=== PATIENT | male | born 1950 | race Caucasian/White ===

== ENCOUNTER → 2020-10-09 09:30 | Outpatient (BNVA) | payer MEDICARE, SELFPAY | PROVIDERS: Family Provider Family Medicine; PCP Family Medicine; Referring Provider Family Medicine; Visit Provider Anesthesiology Pain Medicine | DX: M51.16 Intervertebral disc disorders with radiculopathy, lumbar region (principal); M47.816 Spondylosis without myelopathy or radiculopathy, lumbar region; M54.9 Dorsalgia, unspecified; M96.1 Postlaminectomy syndrome, not elsewhere classified; Z98.890 Other specified postprocedural states; Z79.899 Other long term (current) drug therapy; Z79.891 Long term (current) use of opiate analgesic | CPT/HCPCS: 99205 ==

== ENCOUNTER 2020-12-01 12:04 | Outpatient (CLI) | payer MEDICARE, SELFPAY ==
--- NOTE | 2020-12-01 12:15 | MR_ITS ---
WS: [id number] MRI LUMBAR SPINE WITH AND WITHOUT CONTRAST. HISTORY: M96.1 - Postlaminectomy syndrome, not elsewhere classified COMPARISON: 03/27/2018 TECHNIQUE: Sagittal and axial multisequence imaging is submitted. Sagittal and axial T1 fat sat seque nces post-MultiHance 18 cc IV. Posterior lumbar fusion extends from L4 to S1. Interbody spacers at L4-5 and L5-S1. No acute marrow e denise. The posterior lumbar vertebral are normally aligned. Mild disc space narrowing at L1-2. Conus terminates normally at L1. L1-L2: Previously described LEFT paracentral disc protrusion has nearly completely resolved. No conta ct on the nerve root. L2-L3: Mild facet joint arthritis. No stenosis. L3-L4: Mild to moderate bilateral facet joint arthritis. Ligamentum flavum hypertrophy encroaching in to the central thecal sac. No significant stenosis or disc protrusions. L4-L5: Bilateral facet joint arthritis. Mild encroachment into the thecal sac. Very similar to the pr ior examination. Mild bilateral foraminal narrowing due to combination of facet disease and disc dise ase. Slightly greater narrowing of the RIGHT subarticular recess may be bony encroachment but this is unchanged. L5-S1: No central stenosis. Difficult evaluation of the foramina due to artifact from the hardware. N o central stenosis. Postcontrast images are negative for discitis or osteomyelitis. MR/MR lumbar spine wo/w con [id number] IMPRESSION: 1. Status post posterior lumbar fusion from L4 to S1 with interbody spacers at L4-5 and L5-S1. Stable with no complication since the prior study. 2. No recurrent or new disc herniations. 3. Nearly completely resolved LEFT paracentral disc protrusion at L1-2. 4. Mild bilateral foraminal narrowing and RIGHT subarticular recess stenosis a t L4-5.
[2020-12-01] MEDS: gadobenate dimeglumine 20 mL vial IV (13:37)
== END 2020-12-01 12:05 | disposition home or self-care (01) ==
LOC: RADSHAW 12:08
PROVIDERS: PCP Family Medicine; Visit Provider Anesthesiology Pain Medicine
DX: M96.1 Postlaminectomy syndrome, not elsewhere classified (principal); M79.604 Pain in right leg; M43.27 Fusion of spine, lumbosacral region; M51.26 Other intervertebral disc displacement, lumbar region
CPT/HCPCS: 72158; A9577

== ENCOUNTER → 2020-12-25 09:29 | Outpatient (BNVA) | payer MEDICARE, SELFPAY | PROVIDERS: PCP Family Medicine; Visit Provider Anesthesiology Pain Medicine | DX: M51.16 Intervertebral disc disorders with radiculopathy, lumbar region (principal); M47.816 Spondylosis without myelopathy or radiculopathy, lumbar region; M96.1 Postlaminectomy syndrome, not elsewhere classified; M48.061 Spinal stenosis, lumbar region without neurogenic claudication; M79.604 Pain in right leg; Z79.891 Long term (current) use of opiate analgesic | CPT/HCPCS: 99214 ==

== ENCOUNTER → 2021-03-02 11:03 | Outpatient (BNVA) | payer MEDICARE, SELFPAY | PROVIDERS: PCP Family Medicine; Referring Provider Anesthesiology Pain Medicine; Visit Provider Orthopaedic Surgery | DX: M54.50 Low back pain, unspecified (principal); Z98.1 Arthrodesis status | CPT/HCPCS: 72110 ==

== ENCOUNTER → 2021-04-26 09:23 | Outpatient (BNVA) | payer MEDICARE, SELFPAY | PROVIDERS: PCP Family Medicine; Visit Provider Anesthesiology Pain Medicine | DX: M47.816 Spondylosis without myelopathy or radiculopathy, lumbar region (principal); M96.1 Postlaminectomy syndrome, not elsewhere classified; M51.16 Intervertebral disc disorders with radiculopathy, lumbar region; M79.604 Pain in right leg; M79.605 Pain in left leg; Z79.891 Long term (current) use of opiate analgesic | CPT/HCPCS: 99214 ==

== ENCOUNTER 2021-08-05 12:52 | Outpatient (CLI) | payer MEDICARE, SELFPAY ==
--- NOTE | 2021-08-05 13:08 | CT_ITS ---
WS: [id number] CTA HEAD AND NECK TECHNIQUE: Contrast enhanced CTA of the head and neck with coronal and sagittal reformatted images an d maximum intensity projection (MIP) images. NASCET criteria utilized. CLINICAL INFORMATION: ACUTE CVA COMPARISON: None. DLP: 3378.[address] scans at [facility] use at least one of these dose optimization techniques: automated e xposure control; mA and/or kV adjustment per patient size (includes targeted exams where dose is matc hed to clinical indication); or iterative reconstruction. FINDINGS: No evidence of intracranial hemorrhage or mass effect on the noncontrast head. Mild small v essel changes moderate parenchymal volume loss. No extra axial fluid collections. No evidence of mass or mass effect. Normal posterior fossa. Fluid and mucosal thickening in the ethmoid air cells and RI GHT frontal sinus. Secretions within the LEFT sphenoid sinus consistent with sinusitis. Mastoid air c ells well aerated. RIGHT: RIGHT common carotid artery is patent. Moderate calcified atheromatous plaque RIGHT carotid bu lb extending into the ICA. Less than 50% RIGHT ICA stenosis. RIGHT ICA is patent to the skull base. LEFT: LEFT common carotid artery is patent. Mild calcified atheromatous plaque LEFT carotid bulb exte nding into the ICA. No significant LEFT ICA stenosis. LEFT ICA is patent to the skull base. INTRACRANIAL CTA: Both vertebral arteries are patent. Mild segmental stenosis involving the basilar artery. Basilar art hodan is patent. Persistent LEFT MACHINE BOSS. Normal vascularity to the MACHINE BOSS territory bilaterally. Both ICAs are patent at the skull base. Mild cavernous carotid calcification. Normal vascularity to t he ARMANDO and MCA territories bilaterally. No evidence of flow-limiting stenosis or aneurysm. Lung apices are well aerated. Normal posterior nasopharynx. Normal parapharyngeal fat. No cervical ly mphadenopathy. Mild spondylitic changes cervical spine. Disc space narrowing worse at C5-C7. Normal v isualized dural venous sinuses. CT/CT angio headneck* [id number] IMPRESSION: 1. Moderate atheromatous plaque both carotid bulbs extending into the ICA RIGH T greater than LEFT. Less than 50% ICA stenosis bilaterally. 2. Both vertebral arteries are patent. Mild segmental stenosis in the basilar artery which remains patent. 3. Mild cavernous carotid calcification. No flow-limiting intracranial stenosi s. 4. Persistent LEFT MACHINE BOSS. 5. No evidence of intracranial hemorrhage or mass effect on the noncontrast im aging. 6. Mild small vessel changes with mild parenchymal volume loss. 7. Inflammatory changes in the paranasal sinuses.
[2021-08-05] MEDS: iodixanol 320 mg/mL 100mL Btl IV (13:39)
== END 2021-08-05 12:53 | disposition home or self-care (01) ==
LOC: RAD 12:56
PROVIDERS: PCP Family Medicine; Visit Provider Family Medicine
DX: I63.9 Cerebral infarction, unspecified (principal); I65.23 Occlusion and stenosis of bilateral carotid arteries
CPT/HCPCS: 70496; 70498

== ENCOUNTER 2021-08-05 14:59 | Observation (INO) | payer MEDICARE, SELFPAY ==
[2021-08-05 15:07] VITALS: BP 150/88; PULSE 87; RESP 18; TEMP 36.5; O2SAT 96; BMI 28.1
--- NOTE | 2021-08-05 15:37 | ED_ITS ---
HPI - Weakness General: Chief complaint: Weakness Stated complaint: stroke like symptoms Time Seen by Provider: 08/05/21 15:27 Source: patient Mode of arrival: ambulatory Limitations: no limitations History of Present Illness: 70-year-old male presents emergency room with complaint of right arm weakness that began 2 days ago. Intermittent right arm weakness was seen by Dr. Yang this morning. He had a CTA done which did not show any hemorrhagic areas. As well as no acute ischemic areas no significant stenosis. After seeing Trey today he states he began having more right arm weakness difficulty with gripping things that is already begun to improve by the time he arrives here is not had any chest pain. He had previously been taking a full dose aspirin daily Dr. Ynag had stopped and advised him to take Plavix but is not at the opportunity to begin yet. There are no statins listed. MD Complaint: focal weakness Onset (ago): day(s) (2) Duration: intermittent Location: LUE Quality: tingling and numbness Relieving factors: none Exacerbating factors: none Associated symptoms: Denies chest pain, chills, confusion, melena, decreased appetite, diaphoresis, dysuria, easy bruising, fever(s), headache(s), myalgias, nausea, rash, short of breath, syncope or vomiting Review of Systems Const: Denies: fever(s), chills or diaphoresis Card: Denies: chest pain or syncope GI: Denies: nausea, vomiting or melena : Denies: dysuria Neuro: Denies: headache(s) or confusion Jimenez/Lymph: Denies: easy bruising PFS ED PFSH: Medical History Yancey esophagus COPD (chronic obstructive pulmonary disease) Facet arthropathy, 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 Other CAD (coronary artery disease) Clotting disorder Social History Alcohol intake: current Alcohol intake frequency: holidays/special occasions only History of recent travel: No Physical Exam Const: GENERAL APPEARANCE: cooperative and comfortable ORIENTATION/CONSCIOUSNESS: Yes awake, Yes oriented to person, Yes oriented to place and Yes oriented to time HENMT: COMMON NORMALS: normocephalic, atraumatic, hearing grossly normal bila terally, external ears normal, EAC's normal, TM's normal bilaterally, Normal nasal mucous membranes and turbinates present, moist oral mucous membranes and oropharynx normal HEAD & SCALP: normocephalic and atraumatic NOSE: Normal nasal mucous membranes and turbinates present EXTERNAL EAR: Yes external ears normal EXTERNAL AUDITORY CANAL: EAC's normal TYMPANIC MEMBRANE: TM's normal bilaterally Eye: COMMON NORMALS: Equal, round and reactive pupils present, EOMs intact bilaterally, conjunctivae normal and no scleral icterus CONJUNCTIVA: Yes conjunctivae normal PUPIL: Yes Equal, round and reactive pupils present Neck/C-Spine: COMMON NORMALS: full ROM, no lymphadenopathy, supple and no JVD Resp: COMMON NORMALS: normal respiratory effort, No retractions, No use of accessory muscles and clear to auscultation bilaterally AUSCULTATION: clear to auscultation bilaterally Cardio: COMMON NORMALS: no JVD, regular rate, regular rhythm and No murmurs present (Cardio) RATE: regular rate RHYTHM: regular rhythm GI: COMMON NORMALS: Soft to palpation and No hepatosplenomegaly present AUSCULTATION: Yes normoactive bowel sounds PALPATION: Yes Soft to palpation, No Tenderness to palpation present (GI), No Guarding due to palpation present (GI) and Yes No hepatosplenomegaly present Extremity: COMMON NORMALS: normal to inspection, capillary refill normal, no clubbing, cyanosis or edema, no calf tenderness and no pedal edema Neuro: SENSORIUM/ORIENTATION: Yes oriented to person, Yes oriented to place and Yes oriented to time Skin: COMMON NORMALS: no rashes or lesions noted GENERAL SKIN EXAM: no rashes or lesions noted Course Vital Signs: Vital signs: Vital Signs Temperature 97.6 F 08/06/21 14:05 Pulse Rate 79 08/06/21 14:05 Respiratory Rate 20 H 08/06/21 14:05 Blood Pressure 117/70 08/06/21 14:05 Pulse Oximetry 96 08/06/21 14:05 MDM - Weakness Medical Decision Making Due to the patient's primary care doctor as well as with Dr. Garcia and the hospitalist. Question of possible CVA Dr. Garcia is recommending that we phlebotomize the patient 1 unit get an MRI. Discussed with the hospitalist orders written also discussed with the patient. At this time he is doing well has no specific complaints other than just a very mild word finding difficulty and right arm weakness which seems to have improved slightly. Medical Records I reviewed the patient's medical records. Lab Data I reviewed the patient's lab results. : 08/06/21 03:07 08/06/21 03:07 Radiology Impressions Cervical Spine CT 08/05/21 17:39 IMPRESSION: Moderate endplate degenerative changes/uncovertebral hypertrophy at C5-C6 and C6-C7. This leads to mild to moderate bilateral neural foraminal narrowing at these levels. No severe spinal canal stenosis. Thoracic Spine CT 08/05/21 17:39 IMPRESSION: No acute findings. No significant disc protrusion, spinal canal stenosis, or neural foraminal stenosis in the thoracic spine. Head MRI 08/06/21 08:00 IMPRESSION: 1. Multiple punctate tiny foci of acute ischemia involving the LEFT frontal, parietal, occipital, and posterior temporal lobes most likely embolic in etiology. No right-sided infarcts. 2. No mass effect or midline shift. 3. Mild small vessel changes with moderate parenchymal volume loss. 4. Mild inflammatory changes in the paranasal sinuses. Mastoid air cells well aerated. 5. No hemosiderin on susceptibly weighted images. Notified Stas Durham MD at 08/06/2021 12:23 PM. Laboratory Results WBC 6.8 10^3/uL (4.0-10.0) 08/05/21 13:50 RBC 5.46 10^6/uL (4.1-5.3) H 08/05/21 13:50 Hgb 17.8 g/dL (11.7-16.6) H 08/05/21 13:50 Hct 51.1 % (42.0-52.0) 08/05/21 13:50 MCV 93.6 fl (80-94) 08/05/21 13:50 MCH 32.6 pg (28.0-34.0) 08/05/21 13:50 MCHC 34.8 g/dL (30.0-36.0) 08/05/21 13:50 RDW 12.5 % (12.1-15.1) 08/05/21 13:50 Plt Count 155 10^3/cmm (130-400) 08/05/21 13:50 MPV 11.2 fL (7.4-10.4) H 08/05/21 13:50 Neut % (Auto) 65.9 % 08/05/21 13:50 Lymph % (Auto) 23.6 % 08/05/21 13:50 [place] % (Auto) 4.4 % 08/05/21 13:50 Eos % (Auto) 4.8 % 08/05/21 13:50 Baso % (Auto) 1.0 % 08/05/21 13:50 Neut # (Auto) 4.50 10^3/uL (1.8-7.7) 08/05/21 13:50 Lymph # (Auto) 1.6 10^3/uL (0.8-4.8) 08/05/21 13:50 [place] # (Auto) 0.3 10^3/uL (0.2-0.9) 08/05/21 13:50 Eos # (Auto) 0.3 10^3/uL (0.0-0.8) 08/05/21 13:50 Baso # (Auto) 0.1 10^3/uL (0.0-0.1) 08/05/21 13:50 Nucleated RBC % (auto) 0 % 08/05/21 13:50 Nucleated RBCs # 0.0 /100WBC 08/05/21 13:50 ESR 19 mm/hr (0-10) H 08/05/21 13:50 PT 13.50 SECONDS (12.1-14.9) 08/05/21 13:50 INR 1.00 (0.8-1.2) 08/05/21 13:50 APTT 32.6 SECONDS (23.9-36.7) 08/05/21 13:50 Sodium 140 mmol/L (136-145) 08/05/21 16:50 Potassium 3.2 mmol/L (3.5-5.1) L 08/05/21 16:50 Chloride 108 mmol/L (98-107) H 08/05/21 16:50 Carbon Dioxide 19 mmol/L (22-29) L 08/05/21 16:50 Anion Gap 16.2 (5-19) 08/05/21 16:50 BUN 18 mg/dL (8-23) 08/05/21 16:50 Creatinine 1.1 mg/dL (0.7-1.2) 08/05/21 16:50 GFR Calculation 66.4 mL/min (90-130) L 08/05/21 16:50 Glucose 94 mg/dL (65-115) 08/05/21 16:50 Calculated Osmolality 292 mOsm/kg (285-295) 08/05/21 16:50 Calcium 8.3 mg/dL (8.5-10.5) L 08/05/21 16:50 Iron 92 ug/dL (59-158) 08/05/21 16:50 TIBC 260 mcg/dl 08/05/21 16:50 % Saturation 35.3 % (20-50) 08/05/21 16:50 Unsat Iron Binding 168 ug/dL (112-347) 08/05/21 16:50 Total Bilirubin 0.5 mg/dL (0.15-1.2) 08/05/21 16:50 AST 26 U/L (0-40) 08/05/21 16:50 ALT 25 U/L (0-41) 08/05/21 16:50 Alkaline Phosphatase 79 IU/L (40-130) 08/05/21 16:50 C-Reactive Protein 3.0 mg/L (0.0-4.9) 08/05/21 16:50 Total Protein 7.0 g/dL (6.6-8.7) 08/05/21 16:50 Albumin 3.7 g/dL (3.5-5.2) 08/05/21 16:50 Globulin 3.3 g/dL (1.3-4.6) 08/05/21 16:50 TSH 2.85 uIU/mL (0.27-4.20) 08/05/21 16:50 Urine Color Yellow (Yellow) 08/05/21 16:10 Urine Appearance Clear (CLEAR) 08/05/21 16:10 Urine pH 5 (5-7) 08/05/21 16:10 Ur Specific [place] 1.010 (1.005-1.030) 08/05/21 16:10 Urine Protein Neg (Negative) 08/05/21 16:10 Urine Glucose (UA) Norm (Normal) 08/05/21 16:10 Urine Ketones Negative (Negative) 08/05/21 16:10 Urine Blood Neg (Negative) 08/05/21 16:10 Urine Nitrate Negative (Negative) 08/05/21 16:10 Urine Bilirubin Neg (Negative) 08/05/21 16:10 Urine Urobilinogen Norm mg/dL (Negative) 08/05/21 16:10 Ur Leukocyte Esterase Negative (Negative) 08/05/21 16:10 Urine Opiates Screen Positive ng/mL (Negative) H 08/05/21 16:10 Ur Barbiturates Screen Negative ng/mL (Negative) 08/05/21 16:10 Ur Phencyclidine Scrn Negative ng/mL (Negative) 08/05/21 16:10 Ur Amphetamines Screen Negative ng/mL (Negative) 08/05/21 16:10 U Benzodiazepines Scrn Negative ng/mL (Negative) 08/05/21 16:10 Urine Cocaine Screen Negative ng/mL (Negative) 08/05/21 16:10 U Marijuana (THC) Screen Positive ng/mL (Negative) H 08/05/21 16:10 Discharge Plan Discharge Patient Disposition: Admitted As Inpatient Admit Provider: Stas Durham Condition: Stable Discharge Diet: Regular and Cardiac Discharge Activity: Resume usual activity and Increase activity as tolerated Coding Level of Care Code ED Therapy Director for Jm Fwlauren Exam Comprehensive NIH stroke score NIHSS Level Of Consciousness - 1a: 0 Level Of Consciousness Questions - 1b: Both Correct Level Of Consciousness Commands - 1c: Both Correct Best Gaze - 2: Normal Visual Colilns - 3: No Visual Loss Facial Palsy - 4: Normal Motor Arm Right - 5: Drift Motor Arm Left - 5: No Drift Motor Leg Right - 6: No Drift Motor Leg Left - 6: No Drift Limb Ataxia - 7: Absent Sensory - 8: Mild To Moderate Loss Best Language - 9: No Aphasia Dysarthia - 10: Normal Extinction And Inattention - 11: 0 Score Total Score: 2
--- NOTE | 2021-08-05 15:46 | ECG_ITS ---
[facility] Test Date: 2021-08-05 Pat Name: Bridger Owens Department: Room: Gender: Male Nurse Charge Rn: : 1950 Requested By: Jeet Maloney Order Number: [id number] Jonathan MD: Katerin Davis M.D. Measurements Intervals [place] Rate: 86 P: 67 WI: 150 QRS: 16 QRSD: 76 T: 63 QT: 355 QTc: 425 Interpretive Statements SINUS RHYTHM POSSIBLE LEFT ATRIAL ENLARGEMENT [-0.1mV P-WAVE IN V1/V2] MODERATE ST DEPRESSION [0.05+ mV ST DEPRESSION] No previous ECG available for comparison Electronically Signed On 08-06-2021 5:53:52 [employer] by Katerin Davis M.D. [email or web address]
[2021-08-05 16:04] LABS: Basophils # 0.1 10^3/uL (0.0-0.1); Eosinophils # 0.3 10^3/uL (0.0-0.8); Eosinophils % 4.8 %; Hematocrit 51.1 % (42.0-52.0); Hemoglobin 17.8 g/dL (11.7-16.6); Lymphocytes # 1.6 10^3/uL (0.8-4.8); Lymphocytes % 23.6 %; Mean Corpuscular HGB Conc 34.8 g/dL (30.0-36.0); Mean Corpuscular Hemoglobin 32.6 pg (28.0-34.0); Mean Corpuscular Volume 93.6 fl (80-94); Mean Platelet Volume 11.2 fL (7.4-10.4); Monocytes # 0.3 10^3/uL (0.2-0.9); Monocytes % 4.4 %; Neutrophils % 65.9 %; Nucleated Red Blood Cells % 0 %; Platelet Count 155 10^3/cmm (130-400); Red Blood Count 5.46 10^6/uL (4.1-5.3); Red Cell Distribution Width 12.5 % (12.1-15.1); White Blood Count 6.8 10^3/uL (4.0-10.0)
[2021-08-05 16:14] LABS: Add Urine Microscopic? NO; Charge for UA Resulting for Rev
[2021-08-05 16:20] LABS: Urine Appearance Clear (CLEAR); Urine Color Yellow (Yellow); pH Urine 5 (5-7)
[2021-08-05 16:21] LABS: Bilirubin Urine Neg (Negative); Blood Urine Neg (Negative); Glucose Urine UA Norm (Normal); Ketones Urine Negative (Negative); Leukocyte Esterase Urine Negative (Negative); Nitrate Urine Negative (Negative); Protein Urine Neg (Negative); Urobilinogen Urine Norm (Negative)
[2021-08-05 16:24] LABS: Partial Thromboplastin Time 32.6 SECONDS (23.9-36.7)
[2021-08-05 16:30] LABS: Amphetamines Screen Urine Negative (Negative); Barbiturates Screen Urine Negative (Negative); Benzodiazepines Screen Urine Negative (Negative); Cocaine Screen Urine Negative (Negative); Opiate Screen Urine Positive (Negative); PCP Screen Urine Negative (Negative); THC Screen Urine Positive (Negative)
[2021-08-05] MEDS: sodium chloride 0.9% 1,000 ML 999 ML IV (17:10)
--- NOTE | 2021-08-05 17:11 | P.HP_ITS ---
Providers/Chief Complaint Primary Care Provider: Waqas Yang MD Chief Complaint: stroke like symptoms History of Present Illness Bridger Owens is a 70 year old male with past medical history of hypertension, polycythemia, lumbar disorder who was sent in from his primary care's office today because of having on and off episodes of right weakness for last 2 days along with few episodes of finding it difficult to find his words. Feel the episodes work associated with headache, dizziness and tingling in his right hand. Patient went to his primary care office with similar complaints and was asked to do a CTA of his head and neck which came back normal. Because patient continued to have a similar symptoms so he was sent to the ER. Patient is not having similar complaints at the present but states he is finding little bit difficult to find words. As per conversation with the ER physician he had discussed the case with hematology and they recommended hydration and phlebotomizing 1 unit of PRBC. Review of Systems General: Reports: 10 or more systems reviewed and unremarkable except in HPI and below Const: Denies: fever(s), chills, body aches, change in appetite, change in weight, malaise, night sweats, diaphoresis, change in sleep pattern, daytime sleepiness or snoring Eyes: Denies: change in vision, blurry vision, photophobia, eye discomfort or eye discharge ENMT: Denies: throat pain, enlarged tonsils, hoarseness, mouth pain, oral sores, dry mouth, tinnitus, nasal congestion or post nasal drip Card: Denies: chest pain, palpitations, irregular heart rhythm, edema, swelling of feet/ankles, lightheadedness, syncope, pre-syncope, dyspnea on exertion, orthopnea, leg pain with exertion or acrocyanosis Resp: Denies: dyspnea, productive cough, non-productive cough, wheezing, stridor, pain on inspiration, change in phlegm color, hemoptysis or chest congestion GI: Denies: abdominal pain, nausea, vomiting, hematemesis, coffee ground emesis, dysphagia, heartburn, diarrhea, constipation, bloating, GI cramping, change in bowel habits, pain on defecation, hematochezia or melena : Denies: flank pain, difficulty urinating, dysuria, urinary frequency, urinary urgency, urinary hesitancy, urinary dribbling, difficulty starting urination, change in urine stream, nocturia or hematuria Musc: Denies: neck pain, back pain, extremity pain, joint pain, joint swelling, joint redness, joint stiffness or limited range of motion Neuro: Denies: headache(s), numbness in extremities, weakness in extremities, sensory changes, lack of coordination, difficulty walking, frequent falls, dizziness, vertigo, confusion, Slurred speech present, difficulty communicating thoughts or seizure-like activity Psych: Denies: anxiety, depression, mood swings, panic attacks, hopelessness or irritability Endo: Denies: polyuria, polydipsia, tired all the time, cold intolerance, excessive sweating, flushing or heat intolerance Jimenez/Lymph: Denies: easy bruising or easy bleeding All/Imm: Denies: tongue swelling, facial swelling or acute wheezing Medications/Allergies Home Medications Medication Instructions Recorded Confirmed Last Taken Type losartan 50 mg-hydrochlorothiazide 1 tab PO DAILY 10/09/20 08/05/21 08/05/21 History 12.5 mg tablet melatonin 10 mg capsule 10 mg PO DAILY 10/09/20 08/05/21 08/04/21 History hydrocodone 7.5 mg-acetaminophen 1 tab PO BID PRN 15 Days #30 tab 04/26/21 08/05/21 Unknown Rx 325 mg tablet aspirin 325 mg capsule 325 mg PO BEDTIME 08/05/21 08/05/21 08/04/21 History clopidogrel 75 mg tablet 75 mg PO DAILY 08/05/21 08/05/21 Unknown History pantoprazole 40 mg tablet,delayed 40 mg PO DAILY 08/05/21 08/05/21 Unknown History release rosuvastatin 40 mg tablet 40 mg PO DAILY 08/05/21 08/05/21 Unknown History Allergies Allergy/AdvReac Type Severity Reaction Status Date / Time No Known Allergies Allergy Verified 08/05/21 16:04 PFSH Acute PFSH: Medical History (Updated 08/05/21 @ 17:12 by Stas Durham MD) Yancey esophagus COPD (chronic obstructive pulmonary disease) Facet arthropathy, 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 Other CAD (coronary artery disease) Clotting disorder Social History Alcohol intake: current Alcohol intake frequency: holidays/special occasions only History of recent travel: No Vitals/I&O/Wt Last Vital Signs Temp 97.7 F 08/05/21 15:07 Pulse 87 08/05/21 15:07 Resp 18 08/05/21 15:07 BP 150/88 08/05/21 15:07 Pulse Ox 96 08/05/21 15:07 Weight last 48 hrs Weight 83.915 kg Physical Exam Narrative: General: No acute distress, AO x3, no slurred speech HEENT: PERRLA, pupils bilaterally equal and reactive Chest: Normal vesicular breath sounds, no added sounds, equal good air entry bilaterally CVS: S1-S2 regular, no murmurs, no tachycardia, no gallops, no rubs Abdomen: Soft, nontender, no organomegaly, bowel sounds present Neuro: No focal deficits, no facial deformity, AO x3, power 5/5 in both lower limb, 4/5 in right upper limb Data : 08/05/21 13:50 08/05/21 16:50 Other Labs: Laboratory Results WBC 6.8 10^3/uL (4.0-10.0) 08/05/21 13:50 RBC 5.46 10^6/uL (4.1-5.3) H 08/05/21 13:50 Hgb 17.8 g/dL (11.7-16.6) H 08/05/21 13:50 Hct 51.1 % (42.0-52.0) 08/05/21 13:50 MCV 93.6 fl (80-94) 08/05/21 13:50 MCH 32.6 pg (28.0-34.0) 08/05/21 13:50 MCHC 34.8 g/dL (30.0-36.0) 08/05/21 13:50 RDW 12.5 % (12.1-15.1) 08/05/21 13:50 Plt Count 155 10^3/cmm (130-400) 08/05/21 13:50 MPV 11.2 fL (7.4-10.4) H 08/05/21 13:50 Neut % (Auto) 65.9 % 08/05/21 13:50 Lymph % (Auto) 23.6 % 08/05/21 13:50 [place] % (Auto) 4.4 % 08/05/21 13:50 Eos % (Auto) 4.8 % 08/05/21 13:50 Baso % (Auto) 1.0 % 08/05/21 13:50 Neut # (Auto) 4.50 10^3/uL (1.8-7.7) 08/05/21 13:50 Lymph # (Auto) 1.6 10^3/uL (0.8-4.8) 08/05/21 13:50 [place] # (Auto) 0.3 10^3/uL (0.2-0.9) 08/05/21 13:50 Eos # (Auto) 0.3 10^3/uL (0.0-0.8) 08/05/21 13:50 Baso # (Auto) 0.1 10^3/uL (0.0-0.1) 08/05/21 13:50 Nucleated RBC % (auto) 0 % 08/05/21 13:50 Nucleated RBCs # 0.0 /100WBC 08/05/21 13:50 PT 13.50 SECONDS (12.1-14.9) 08/05/21 13:50 INR 1.00 (0.8-1.2) 08/05/21 13:50 APTT 32.6 SECONDS (23.9-36.7) 08/05/21 13:50 Sodium Cancelled 08/05/21 13:50 Potassium Cancelled 08/05/21 13:50 Chloride Cancelled 08/05/21 13:50 Carbon Dioxide Cancelled 08/05/21 13:50 Anion Gap Cancelled 08/05/21 13:50 BUN Cancelled 08/05/21 13:50 Creatinine Cancelled 08/05/21 13:50 GFR Calculation Cancelled 08/05/21 13:50 Glucose Cancelled 08/05/21 13:50 Calculated Osmolality Cancelled 08/05/21 13:50 Calcium Cancelled 08/05/21 13:50 Total Bilirubin Cancelled 08/05/21 13:50 AST Cancelled 08/05/21 13:50 ALT Cancelled 08/05/21 13:50 Alkaline Phosphatase Cancelled 08/05/21 13:50 Total Protein Cancelled 08/05/21 13:50 Albumin Cancelled 08/05/21 13:50 Globulin Cancelled 08/05/21 13:50 Urine Color Yellow (Yellow) 08/05/21 16:10 Urine Appearance Clear (CLEAR) 08/05/21 16:10 Urine pH 5 (5-7) 08/05/21 16:10 Ur Specific [place] 1.010 (1.005-1.030) 08/05/21 16:10 Urine Protein Neg (Negative) 08/05/21 16:10 Urine Glucose (UA) Norm (Normal) 08/05/21 16:10 Urine Ketones Negative (Negative) 08/05/21 16:10 Urine Blood Neg (Negative) 08/05/21 16:10 Urine Nitrate Negative (Negative) 08/05/21 16:10 Urine Bilirubin Neg (Negative) 08/05/21 16:10 Urine Urobilinogen Norm mg/dL (Negative) 08/05/21 16:10 Ur Leukocyte Esterase Negative (Negative) 08/05/21 16:10 Urine Opiates Screen Positive ng/mL (Negative) H 08/05/21 16:10 Ur Barbiturates Screen Negative ng/mL (Negative) 08/05/21 16:10 Ur Phencyclidine Scrn Negative ng/mL (Negative) 08/05/21 16:10 Ur Amphetamines Screen Negative ng/mL (Negative) 08/05/21 16:10 U Benzodiazepines Scrn Negative ng/mL (Negative) 08/05/21 16:10 Urine Cocaine Screen Negative ng/mL (Negative) 08/05/21 16:10 U Marijuana (THC) Screen Positive ng/mL (Negative) H 08/05/21 16:10 CTA head and neck: CT/CT angio headneck* [id number] IMPRESSION: ? 1.? Moderate atheromatous plaque both carotid bulbs extending into the ICA RIGHT greater than LEFT. Less than 50% ICA stenosis bilaterally. 2.? Both vertebral arteries are patent. Mild segmental stenosis in the basilar artery which remains patent. 3.? Mild cavernous carotid calcification. No flow-limiting intracranial stenosis. 4.? Persistent LEFT TECHNICAL SOLUTION ARCHITECT. 5.? No evidence of intracranial hemorrhage or mass effect on the noncontrast imaging. 6.? Mild small vessel changes with mild parenchymal volume loss. 7.? Inflammatory changes in the paranasal sinuses. Dictated By: Aldo Burch MD A&P Assessment and plan (1) TIA (transient ischemic attack): Status: Acute (2) Polycythemia: Status: Acute (3) HTN (hypertension): Status: Acute Plan 70-year-old gentleman past medical history of polycythemia with significant family history of CVA, CAD presented with symptoms consistent with TIA. TIA: Under work-up. CTA head and neck done as an outpatient. Telemetry, check echocardiogram, MRI brain. PT/OT/speech evaluation. Continue with home dose of aspirin, Plavix. Atorvastatin 80 mg daily. Check A1c, lipid panel. Check drug screen, TSH, CRP, ESR, INR Permissible hypertension. Patient does have history of lumbar arthropathy. Will do CT cervical and thoracic spine to rule out osteophytes. Polycythemia: Symptoms could be secondary to polycythemia. Case discussed with hematology office. Normal saline 100 cc/h. Hold off on diuretic for now. Advised to phlebotomize 1 unit of PRBC. Hypertension: Permissive hypertension. For now hold off on any antihypertensives. Full code. Protonix OPD prophylaxis. Lovenox for DVT prophylaxis. Admitted under observation. Attestations Medical Necessity Statement*: Admit under obs for less than 2 MN for TIA work up, polycythemia Time Spent in Patient Care: Greater than 35 minutes Coding Level of Care Code [place] Agent for [facility] Fwd Diagnoses TIA (transient ischemic attack) G45.9 Polycythemia D75.1 HTN (hypertension) I10
[2021-08-05 17:36] LABS: Alanine Aminotransferase 25 U/L (0-41); Albumin Level 3.7 g/dL (3.5-5.2); Alkaline Phosphatase 79 IU/L (40-130); Anion Gap 16.2 (5-19); Aspartate Amino Transferase 26 U/L (0-40); Blood Urea Nitrogen 18 mg/dL (8-23); Calcium 8.3 mg/dL (8.5-10.5); Carbon Dioxide 19 mmol/L (22-29); Chloride 108 mmol/L (98-107); Creatinine Clr Calc Pharmacy 66.8816; Globulin 3.3 g/dL (1.3-4.6); Glomerular Filtration Rate 66.4 mL/min (90-130); Glucose 94 mg/dL (65-115); Osmolality Calculated 292 mOsm/kg (285-295); Potassium 3.2 mmol/L (3.5-5.1); Sodium 140 mmol/L (136-145); Total Bilirubin 0.5 mg/dL (0.15-1.2)
--- NOTE | 2021-08-05 17:39 | CTR_ITS ---
PROCEDURE INFORMATION: Exam: CT Cervical Spine Without Contrast Exam date and time: 08/05/2021 5:39 PM Age: 70 years old Clinical indication: Patient HX: Numbness of R upper extremity; Additional info: Numbness of right limb TECHNIQUE: Imaging protocol: Computed tomography images of the cervical spine without contrast. Radiation optimization: All CT scans at this facility use at least one of these dose optimization techniques: automated exposure control; mA and/or kV adjustment per patient size (includes targeted exams where dose is matched to clinical indication); or iterative reconstruction. COMPARISON: CT angio headneck* [id number] 08/05/2021 1:30 PM RADIATION DOSE METRICS: Total DLP (mGy-cm): 708.72 FINDINGS: Bones/joints: No acute fracture. Normal alignment. Moderate endplate degenerative changes/uncovertebral hypertrophy at C5-C6 and C6-C7. Discs/Spinal canal/Neural foramina: No significant disc protrusion. No severe spinal canal stenosis. Mild to moderate bony spurring and neural foraminal narrowing bilaterally at the C5-C6 and C6-C7 levels. Lungs: Lung apices are normal. Soft tissues: Unremarkable. CT/CT cervical spin wo con* [id number] IMPRESSION: Moderate endplate degenerative changes/uncovertebral hypertrophy at C5-C6 and C6-C7. This leads to mild to moderate bilateral neural foraminal narrowing at these levels. No severe spinal canal stenosis.
--- NOTE | 2021-08-05 17:39 | CTR_ITS ---
PROCEDURE INFORMATION: Exam: CT Thoracic Spine Without Contrast Exam date and time: 08/05/2021 5:39 PM Age: 70 years old Clinical indication: Numbness; Patient HX: Arthropathy TECHNIQUE: Imaging protocol: Computed tomography images of the thoracic spine without contrast. Radiation optimization: All CT scans at this facility use at least one of these dose optimization techniques: automated exposure control; mA and/or kV adjustment per patient size (includes targeted exams where dose is matched to clinical indication); or iterative reconstruction. COMPARISON: CT cervical spin wo con* [id number] 08/05/2021 5:55 PM RADIATION DOSE METRICS: Total DLP (mGy-cm): 1914.48 FINDINGS: Vertebrae: No acute fracture. Normal alignment. Discs/Spinal canal/Neural foramina: No significant disc protrusion. No severe spinal canal stenosis. No significant neural foraminal narrowing. Soft tissues: Unremarkable. CT/CT thoracic spin wo con* [id number] IMPRESSION: No acute findings. No significant disc protrusion, spinal canal stenosis, or neural foraminal stenosis in the thoracic spine.
[2021-08-05 18:02] LABS: Erythrocyte Sedimentation Rate 19 mm/hr (0-10)
[2021-08-05] MEDS: enoxaparin 40 mg/0.4 mL Syringe SUBCUT (18:14)
[2021-08-05] MEDS: sodium chloride 0.9% 1,000 ML 100 ML IV (18:18)
[2021-08-05 18:41] VITALS: BP 152/97; PULSE 89; RESP 18; O2SAT 97
--- NOTE | 2021-08-05 18:45 | PC.NURSE ---
PHLEBOTOMY NOTE Pt returned from CT scan to his room in ED 15. This nurse was in room to start phlebotomy on patient per Dr. Vasquez/ orders. 20 gauge IV started to right AC, patient tolerated well. Phlebotomy immediately started at 1800 with tourniquet above IV site and patient squeezing stress ball. 500ml blood total lwas removed by 1832. Patient was receiving normal saline in the left arm and tolerated procedure well. He was alert and oriented x 3 during entire procedure. 20 gauge IV was left in place and a JLoop was connected and flushed. Nurse Waldo was notified that procedure was complete and IV left in place. Supplies used - 1-phlebotomy bag, 1-20 gauge IV
[2021-08-05 19:05] LABS: Thyroid Stimulating Hormone 2.85 uIU/mL (0.27-4.20)
[2021-08-05 19:24] LABS: INR 1.08 (0.8-1.2)
[2021-08-05 19:35] VITALS: BP 106/67; PULSE 86; RESP 18; TEMP 36.6
[2021-08-05 19:37] VITALS: BMI 27.5
[2021-08-05 20:00] VITALS: BP 106/67; PULSE 86; RESP 18; TEMP 36.6
[2021-08-05 20:24] LABS: Iron 92 ug/dL (59-158); Percent Saturation 35.3 % (20-50); Total Iron Binding Capacity 260 mcg/dl; Unsaturated Iron Binding 168 ug/dL (112-347)
[2021-08-05 21:05] VITALS: BP 106/67; PULSE 86; RESP 18; TEMP 36.7; O2SAT 98
[2021-08-05] MEDS: aspirin 325 mg Tablet PO (21:05)
[2021-08-05 21:15] LABS: Glucose Point of Care 129 mg/dL (70-110)
[2021-08-05] MEDS: potassium chloride ER 20 mEq Tablet 40 MEQ PO (22:32)
[2021-08-06] VITALS: BP 114/72; PULSE 80; RESP 17; O2SAT 96
[2021-08-06 01:16] LABS: Folate Level 4.3 ng/mL (4.5-32.2); Vitamin B12 262 pg/mL (232-1245)
[2021-08-06 03:25] LABS: Basophils # 0.1 10^3/uL (0.0-0.1); Basophils % 0.9 %; Eosinophils # 0.4 10^3/uL (0.0-0.8); Eosinophils % 6.1 %; Hematocrit 44.2 % (42.0-52.0); Lymphocytes # 1.8 10^3/uL (0.8-4.8); Lymphocytes % 31.5 %; Mean Corpuscular HGB Conc 33.9 g/dL (30.0-36.0); Mean Corpuscular Hemoglobin 31.7 pg (28.0-34.0); Mean Corpuscular Volume 93.4 fl (80-94); Mean Platelet Volume 10.5 fL (7.4-10.4); Monocytes # 0.4 10^3/uL (0.2-0.9); Monocytes % 7.7 %; Neutrophils # 3.06 10^3/uL (1.8-7.7); Neutrophils % 53.6 %; Nucleated Red Blood Cells % 0 %; Platelet Count 133 10^3/cmm (130-400); Red Blood Count 4.73 10^6/uL (4.1-5.3); Red Cell Distribution Width 12.3 % (12.1-15.1); White Blood Count 5.7 10^3/uL (4.0-10.0)
[2021-08-06 03:38] LABS: Estmated Average Glucose 100; Hemoglobin A1C 5.1 % (4.0-6.0)
[2021-08-06 03:52] LABS: Alanine Aminotransferase 23 U/L (0-41); Albumin Level 3.5 g/dL (3.5-5.2); Alkaline Phosphatase 76 IU/L (40-130); Anion Gap 14.7 (5-19); Aspartate Amino Transferase 20 U/L (0-40); Blood Urea Nitrogen 16 mg/dL (8-23); Calcium 8.5 mg/dL (8.5-10.5); Carbon Dioxide 21 mmol/L (22-29); Chloride 109 mmol/L (98-107); Globulin 3.1 g/dL (1.3-4.6); Glomerular Filtration Rate 50.2 mL/min (90-130); Glucose 103 mg/dL (65-115); Osmolality Calculated 293 mOsm/kg (285-295); Potassium 3.7 mmol/L (3.5-5.1); Sodium 141 mmol/L (136-145); Total Bilirubin 0.3 mg/dL (0.15-1.2); Total Protein 6.6 g/dL (6.6-8.7)
[2021-08-06 03:56] LABS: Phosphorus 2.9 mg/dL (2.5-4.5)
[2021-08-06 03:57] LABS: Chol HDL Ratio 5.06 mg/dL (1.0-5.00); Cholesterol 162 mg/dL (0-200); HDL Cholesterol 32 mg/dL (60-100); LDL Cholesterol Calculated 106 mg/dL (50-129); LDL HDL Ratio 3.31 RATIO (0.00-3.22); Triglycerides 120 mg/dL (0-150)
[2021-08-06 04:00] VITALS: BP 126/83; PULSE 78; RESP 18; TEMP 36.4; O2SAT 98
[2021-08-06] MEDS: sodium chloride 0.9% 1,000 ML 100 ML IV (04:17)
--- NOTE | 2021-08-06 06:00 | USCV_ITS ---
Bridger Owens Age: 70 Gender: M : 1950 Exam Date: 08/06/2021 08:46 Ordering Phys: Stas Durham MD Technologist: MELINDA Exam Location: [facility] [place] Indication: Stroke BP: 126 / 83 HR: 85 Rhythm: Sinus Technical Quality: Adequate MEASUREMENTS (Male / Female) Normal Values 2D ECHO LV Diastolic Diameter PLAX 4.2 cm 4.2 - 5.9 / 3.9 - 5.3 cm LV Systolic Diameter PLAX 3.0 cm IVS Diastolic Thickness 1.1 cm 0.6 - 1.0 / 0.6 - 0.9 cm IVS Systolic Thickness 1.5 cm LVPW Diastolic Thickness 0.9 cm 0.6 - 1.0 / 0.6 - 0.9 cm LVPW Systolic Thickness 1.4 cm RV Chamber Size 3.0 cm LVOT Diameter 2.0 cm LV Ejection Fraction 2D Teich 53.3 % LA Diameter 3.3 cm LA Width 2.6 cm LA Height 4.1 cm RA Width 2.9 cm RA Height 4.0 cm Aorta at Sinotubular Diameter 2.9 cm M-MODE Aortic Annulus Diameter 3.5 cm LA Ao Ratio MM 0.9 MV E Point Septal Separation 0.5 cm DOPPLER AV Peak Velocity 115.0 cm/s LVOT Peak Velocity 95.0 cm/s AV Area Cont Eq vti 3.5 cm squared AV Area Cont Eq pk 2.7 cm squared MV Area PHT 3.9 cm squared Mitral E to A Ratio 0.8 MV E' Velocity 26.5 cm/s Mitral E to MV E' Ratio 7.3 Mitral E to LV E' Lateral Ratio 7.6 Mitral E to LV E' Septal Ratio 7.0 TR Peak Velocity 224.0 cm/s TR Peak Gradient 20.1 mmHg TV Peak E Velocity 43.0 cm/s Right Atrial Pressure 3.0 mmHg Pulmonary Artery Systolic Pressu 23.1 mmHg PV Peak Velocity 126.0 cm/s RV Acceleration Time 0.1 s RV Ejection Time 0.3 s RV AcT/ET 0.3 FINDINGS Left Ventricle Normal left ventricular size. LV systolic function is normal with EF of 55-60%. No regional wall motion abnormalities. Grade 1 diastolic dysfunction Right Ventricle The right ventricle is normal in size and function. Right Atrium Grossly normal Left Atrium Grossly normal Mitral Valve Structurally normal mitral valve without significant stenosis or prolapse. There is no mitral regurgitation. Aortic Valve Grossly normal without stenosis. There is no aortic regurgitation. Tricuspid Valve Structurally normal tricuspid valve without significant stenosis or regurgitation. Insufficient TR jet to calculate RVSP Pulmonic Valve Not visualized Pericardium Normal pericardium without effusion. Aorta Normal ascending aorta dimension. CONCLUSIONS LV systolic function is normal with EF of 55-60% Grade 1 diastolic dysfunction No gross valvular abnormalities. No comparison studies are available Noe Gallegos MD (Electronically Signed) Final Date: 06 August 2021 15:15 S
[2021-08-06 08:00] VITALS: BP 121/76; PULSE 66; RESP 18; TEMP 36.6; O2SAT 97
--- NOTE | 2021-08-06 08:00 | MR_ITS ---
WS: [id number] MRI HEAD WITHOUT CONTRAST TECHNIQUE: Sagittal T1, T2 axial, T2 axial FLAIR, axial and coronal T1 images, axial susceptibility w eighted imaging, axial diffusion weighted images, and coronal T2 images were obtained. CLINICAL INFORMATION: TIA COMPARISON: None. FINDINGS: Multiple punctate tiny foci of restricted diffusion within the LEFT frontal parietal occipital and po sterior temporal lobes consistent with tiny foci of acute ischemia. Consider embolic etiology. No foc i of restricted diffusion within the RIGHT hemisphere. No significant mass effect or midline shift. Mild small vessel changes with moderate parenchymal volume loss. Normal posterior fossa. Normal vascu lar flow voids at the skull base. No extra-axial fluid collections. No evidence of mass or mass effec t. Mild mucosal thickening in the paranasal sinuses. Opacification RIGHT frontal sinus and ethmoid ai r cells. Mastoid air cells are well aerated. Moderate symmetric atrophy temporal lobes and hippocampal formations. Normal optic chiasm and pituita ry infundibulum. No hemosiderin on susceptibly weighted images. MR/MR head wo con* [id number] IMPRESSION: 1. Multiple punctate tiny foci of acute ischemia involving the LEFT frontal, p arietal, occipital, and posterior temporal lobes most likely embolic in etiolog y. No right-sided infarcts. 2. No mass effect or midline shift. 3. Mild small vessel changes with moderate parenchymal volume loss. 4. Mild inflammatory changes in the paranasal sinuses. Mastoid air cells well aerated. 5. No hemosiderin on susceptibly weighted images. Notified Stas Durham MD at 08/06/2021 12:23 PM.
[2021-08-06] MEDS: atorvastatin 40 mg Tablet 80 MG PO (09:14)
[2021-08-06] MEDS: pantoprazole DR 40 mg Tablet PO (09:15)
[2021-08-06] MEDS: clopidogrel 75 mg Tablet PO (09:15)
[2021-08-06] MEDS: perflutren protein-a microsphr 0.22 mg/mL SDV 3 mL IV (09:29)
--- NOTE | 2021-08-06 09:58 | PC.CHAP ---
Pastoral Care Encounter/Spiritual Assessment Type of Contact [] Declined loss prevention associate visit [] Patient/Family/Request visit [] Outpatient visit [] Follow-up visit [] Physician referral [] Code/Alert [x] Routine visit [] Staff referral [] Actively dying [] Patient sleeping [] Family support [] [] Out of room [] Palliative care [] [] Receiving care in room [] Pre-surgical visit [] Trauma [] Long length of stay [] ICU visit [] Other: Relational/Emotional Strength [x] Patient feels connected with others/family/visitors/staff [] Distress [] Loneliness/isolation [] Abandonment Spirituality of Patient [x] Person of Anne [] Attends Cheondoism of their Anne [x] Believes in Prayer [x] Reads Bible or Episcopalian materials [] There are Spiritual issues to be addressed General Maintenance Mechanic Interventions [x] Prayer [x] Active listening [x] Non-anxious presence [x] Spiritual/emotional support [] Crisis/trauma care [x] Spiritual counseling [] Bereavement support [] Provided bereavement packet [] Provided Bible/devotional materials [] Provided toy/stuffed animal, coloring book to patient or family member [] Provided Communion [] Anointing/[place] [] Salvation [x] Completed spiritual assessment [] Other: Impact on Illness or Injury [] Angry [] Fearful [] Anxious [] Often cries [] Exhaustion [] Unable to work [] Unable to attend evangelical [] Unable to walk/stand [] Unable to read [] Unable to drive [] Unable to eat/drink [] Unable to sleep [] Unable to be with family [] Patient intubated [] Other: Summary Time spent with patient 10 min
[2021-08-06 12:00] VITALS: BP 117/70; PULSE 79; RESP 20; TEMP 36.4; O2SAT 96
--- NOTE | 2021-08-06 12:43 | P.DS_ITS ---
Discharge Providers Date of Admission: 08/05/21 17:05 Date of Discharge: August 06, 2021 Attending Provider at Admission: Stas Durham MD Attending Provider at Discharge: Stas Durham MD Primary Care Provider: Waqas Yang MD Diagnoses at Discharge Discharge Diagnosis (1) TIA (transient ischemic attack): Status: Acute (2) Polycythemia: Status: Acute (3) HTN (hypertension): Status: Acute (4) Thromboembolic stroke: Status: Acute Reason for Visit Reason for Visit: stroke like symptoms Hospital Course Hospital Course Bridger Owens is a 70 year old male with past medical history of hypertension, polycythemia, lumbar disorder who was sent in from his primary care's office today because of having on and off episodes of right weakness for last 2 days along with few episodes of finding it difficult to find his words.? Feel the episodes work associated with headache, dizziness and tingling in his right hand.? Patient went to his primary care office with similar complaints and was asked to do a CTA of his head and neck which came back normal.? Because patient continued to have a similar symptoms so he was sent to the ER. Patient is not having similar complaints at the present but states he is finding little bit difficult to find words.? As per conversation with the ER physician he had discussed the case with hematology and they recommended hydration and phlebotomizing 1 unit of PRBC. He was admitted to the hospital for further evaluation and management for possible TIA. Patient CT head and neck and CTA head and neck was done which was negative for any stroke. He underwent phlebotomy of 1 unit of PRBC as recommended by oncology. He was kept on hydration. During hospitalization he did not have any further events concerning for. He worked well with physical therapy and Occupational Therapy. MRI was done next day which was concerning for multiple punctate tiny foci of acute ischemia involving left frontal, parietal, occipital and posterior temporal lobe which was consistent with a possible embolic etiology. Patient did not have any arrhythmias on telemetry during hospitalization. Event monitor has been arranged for patient prior to discharge. He is been discharged in hemodynamically stable condition. As his blood pressures have been stable his antihypertensives including losartan and hydro chlorothiazide have been withheld. He is advised not to take diuretics going forward because of concern for decreased viscosity putting him at high risk strokes given history of polycythemia. He is advised to maintain a blood pressure diary going forward for next 1 week and follow-up with his primary care provider for further adjustment of antihypertensives. Aspirin 325 mg have been stopped and is advised to take Eliquis 5 mg twice daily with concerns for embolic stroke. He is to follow-up with neurology within next 2 weeks. He is advised to take at least 2 to 3 L of fluids on a daily basis. Physical Exam Narrative: General: No acute distress, AO x3, no slurred speech HEENT: PERRLA, pupils bilaterally equal and reactive Chest: Normal vesicular breath sounds, no added sounds, equal good air entry bilaterally CVS: S1-S2 regular, no murmurs, no tachycardia, no gallops, no rubs Abdomen: Soft, nontender, no organomegaly, bowel sounds present Neuro: No focal deficits, no facial deformity, AO x3, power 5/5 in both lower limb, 4/5 in right upper limb Discharge Data Studies Completed and Pending Completed Studies During Hospitalization Category Date Time Status CT cervical spin wo con* [id number] Urgent Cat Scan 08/05/21 17:[address] thoracic spin wo con* [id number] Urgent Cat Scan 08/05/21 17:39 Completed MR head wo con* [id number] Urgent MRI 08/06/21 08:00 Completed Pending at discharge Category Date Time Status Erythropoietin Urgent Lab 08/05/21 19:04 Received CV. echo wo/w contrast [id number] Routine Ultrasound 08/06/21 06:00 Taken Radiology Impressions Cervical Spine CT 08/05/21 17:39 IMPRESSION: Moderate endplate degenerative changes/uncovertebral hypertrophy at C5-C6 and C6-C7. This leads to mild to moderate bilateral neural foraminal narrowing at these levels. No severe spinal canal stenosis. Thoracic Spine CT 08/05/21 17:39 IMPRESSION: No acute findings. No significant disc protrusion, spinal canal stenosis, or neural foraminal stenosis in the thoracic spine. Head MRI 08/06/21 08:00 IMPRESSION: 1. Multiple punctate tiny foci of acute ischemia involving the LEFT frontal, parietal, occipital, and posterior temporal lobes most likely embolic in etiology. No right-sided infarcts. 2. No mass effect or midline shift. 3. Mild small vessel changes with moderate parenchymal volume loss. 4. Mild inflammatory changes in the paranasal sinuses. Mastoid air cells well aerated. 5. No hemosiderin on susceptibly weighted images. Notified Stas Durham MD at 08/06/2021 12:23 PM. Laboratory Results WBC 5.7 10^3/uL (4.0-10.0) 08/06/21 03:07 RBC 4.73 10^6/uL (4.1-5.3) 08/06/21 03:07 Hgb 15.0 g/dL (11.7-16.6) 08/06/21 03:07 Hct 44.2 % (42.0-52.0) 08/06/21 03:07 MCV 93.4 fl (80-94) 08/06/21 03:07 MCH 31.7 pg (28.0-34.0) 08/06/21 03:07 MCHC 33.9 g/dL (30.0-36.0) 08/06/21 03:07 RDW 12.3 % (12.1-15.1) 08/06/21 03:07 Plt Count 133 10^3/cmm (130-400) 08/06/21 03:07 MPV 10.5 fL (7.4-10.4) H 08/06/21 03:07 Neut % (Auto) 53.6 % 08/06/21 03:07 Lymph % (Auto) 31.5 % 08/06/21 03:07 [place] % (Auto) 7.7 % 08/06/21 03:07 Eos % (Auto) 6.1 % 08/06/21 03:07 Baso % (Auto) 0.9 % 08/06/21 03:07 Neut # (Auto) 3.06 10^3/uL (1.8-7.7) 08/06/21 03:07 Lymph # (Auto) 1.8 10^3/uL (0.8-4.8) 08/06/21 03:07 [place] # (Auto) 0.4 10^3/uL (0.2-0.9) 08/06/21 03:07 Eos # (Auto) 0.4 10^3/uL (0.0-0.8) 08/06/21 03:07 Baso # (Auto) 0.1 10^3/uL (0.0-0.1) 08/06/21 03:07 Nucleated RBC % (auto) 0 % 08/06/21 03:07 Nucleated RBCs # 0.0 /100WBC 08/06/21 03:07 ESR 19 mm/hr (0-10) H 08/05/21 13:50 PT 14.30 SECONDS (12.1-14.9) 08/05/21 19:04 INR 1.08 (0.8-1.2) 08/05/21 19:04 APTT 32.6 SECONDS (23.9-36.7) 08/05/21 13:50 Sodium 141 mmol/L (136-145) 08/06/21 03:07 Potassium 3.7 mmol/L (3.5-5.1) 08/06/21 03:07 Chloride 109 mmol/L (98-107) H 08/06/21 03:07 Carbon Dioxide 21 mmol/L (22-29) L 08/06/21 03:07 Anion Gap 14.7 (5-19) 08/06/21 03:07 BUN 16 mg/dL (8-23) 08/06/21 03:07 Creatinine 1.4 mg/dL (0.7-1.2) H 08/06/21 03:07 GFR Calculation 50.2 mL/min (90-130) L 08/06/21 03:07 Glucose 103 mg/dL (65-115) 08/06/21 03:07 POC Glucose 129 mg/dL (70-110) H 08/05/21 20:25 Estimat Average Glucose 100 08/06/21 03:07 Hemoglobin A1c 5.1 % (4.0-6.0) 08/06/21 03:07 Calculated Osmolality 293 mOsm/kg (285-295) 08/06/21 03:07 Calcium 8.5 mg/dL (8.5-10.5) 08/06/21 03:07 Phosphorus 2.9 mg/dL (2.5-4.5) 08/06/21 03:07 Magnesium 2.0 mg/dL (1.7-2.3) 08/06/21 03:07 Iron 92 ug/dL (59-158) 08/05/21 16:50 TIBC 260 mcg/dl 08/05/21 16:50 % Saturation 35.3 % (20-50) 08/05/21 16:50 Unsat Iron Binding 168 ug/dL (112-347) 08/05/21 16:50 Total Bilirubin 0.3 mg/dL (0.15-1.2) 08/06/21 03:07 AST 20 U/L (0-40) 08/06/21 03:07 ALT 23 U/L (0-41) 08/06/21 03:07 Alkaline Phosphatase 76 IU/L (40-130) 08/06/21 03:07 C-Reactive Protein 3.0 mg/L (0.0-4.9) 08/05/21 16:50 Total Protein 6.6 g/dL (6.6-8.7) 08/06/21 03:07 Albumin 3.5 g/dL (3.5-5.2) 08/06/21 03:07 Globulin 3.1 g/dL (1.3-4.6) 08/06/21 03:07 Triglycerides 120 mg/dL (0-150) 08/06/21 03:07 Cholesterol 162 mg/dL (0-200) 08/06/21 03:07 LDL Cholesterol, Calc 106 mg/dL (50-129) 08/06/21 03:07 HDL Cholesterol 32 mg/dL (60-100) L 08/06/21 03:07 LDL/HDL Ratio 3.31 RATIO (0.00-3.22) H 08/06/21 03:07 Cholesterol/HDL Ratio 5.06 mg/dL (1.0-5.00) H 08/06/21 03:07 Vitamin B12 262 pg/mL (232-1245) 08/05/21 19:04 Folate 4.3 ng/mL (4.5-32.2) L 08/05/21 19:04 TSH 2.85 uIU/mL (0.27-4.20) 08/05/21 16:50 Urine Color Yellow (Yellow) 08/05/21 16:10 Urine Appearance Clear (CLEAR) 08/05/21 16:10 Urine pH 5 (5-7) 08/05/21 16:10 Ur Specific [place] 1.010 (1.005-1.030) 08/05/21 16:10 Urine Protein Neg (Negative) 08/05/21 16:10 Urine Glucose (UA) Norm (Normal) 08/05/21 16:10 Urine Ketones Negative (Negative) 08/05/21 16:10 Urine Blood Neg (Negative) 08/05/21 16:10 Urine Nitrate Negative (Negative) 08/05/21 16:10 Urine Bilirubin Neg (Negative) 08/05/21 16:10 Urine Urobilinogen Norm mg/dL (Negative) 08/05/21 16:10 Ur Leukocyte Esterase Negative (Negative) 08/05/21 16:10 Urine Opiates Screen Positive ng/mL (Negative) H 08/05/21 16:10 Ur Barbiturates Screen Negative ng/mL (Negative) 08/05/21 16:10 Ur Phencyclidine Scrn Negative ng/mL (Negative) 08/05/21 16:10 Ur Amphetamines Screen Negative ng/mL (Negative) 08/05/21 16:10 U Benzodiazepines Scrn Negative ng/mL (Negative) 08/05/21 16:10 Urine Cocaine Screen Negative ng/mL (Negative) 08/05/21 16:10 U Marijuana (THC) Screen Positive ng/mL (Negative) H 08/05/21 16:10 Vitals Last Vital Signs Temp 97.6 F 08/06/21 12:00 Pulse 79 08/06/21 12:00 Resp 20 H 08/06/21 12:00 BP 117/70 08/06/21 12:00 Pulse Ox 96 08/06/21 12:00 Discharge Plan Discharge Patient Disposition: Home Condition: Stable Prescriptions: New Eliquis 5 mg tablet 5 mg PO BID Qty: 60 0RF Continued melatonin 10 mg capsule 10 mg PO DAILY 0RF hydrocodone-acetaminophen 7.5-325 mg tablet 1 tab PO BID PRN (Reason: pain (scale score 7-10)) 15 Days Qty: 30 0RF Rx Instructions: may fill 30 days after previous refill. pantoprazole 40 mg tablet,delayed release (DR/EC) 40 mg PO DAILY 0RF clopidogrel 75 mg tablet 75 mg PO DAILY 0RF rosuvastatin 40 mg tablet 40 mg PO DAILY 0RF Discontinued losartan-hydrochlorothiazide 50-12.5 mg tablet 1 tab PO DAILY 0RF aspirin 325 mg Capsule 325 mg PO BEDTIME 0RF Discharge Orders: Discharge Order (Routine); Ordered 08/06/21 Ordered By: Stas Durham Other Ambulatory Orders: MCT/Event Monitor 21 Days (Routine) Timeframe: 1 Week Facility: [facility] - Location: Radiology Ordered By: Stas Durham Referrals: April Mccarthy MD [Physician] - 2 weeks Noe Gallegos M.D [Physician] - 1 month Waqas Yang MD [Primary Care Provider] - 08/17/21 1:45 pm Discharge Diet: Regular and Cardiac Discharge Activity: Resume usual activity and Increase activity as tolerated Patient Instructions: Opioid Safety Activity Restrictions/Additional Instructions: Going forward for now do not take your antihypertensives. You should not be taking diuretics because that puts you at a higher risk of stroke given polycythemia. Please check your blood pressure daily at home and maintain a blood pressure diary and follow-up with your primary care provider within next 1 week to 10 days for initiation of antihypertensives if needed. Do not take aspirin 325 mg daily anymore. Instructed that take Eliquis 5 mg morning and evening. Please follow-up with cardiology within next 3 weeks for review of results of event monitor. Please follow-up with Dr. Mccarthy from neurology within next 2 weeks. Discharge Attestations Time Spent in Discharge Care*: greater than 30 min Specific Discharge Activities: educating patient, discussing with pcp/other providers, discussing with nurse case management/social workers/dc planners, documenting/other paperwork and evaluating patient/reviewing data Status at Discharge: Cognitive status at discharge: cognitively intact , Behavioral status at discharge: cooperative , Functional status at discharge: independent ambulation , Overall status at discharge: patient is back to baseline Quality Metrics Clinical Quality Measures [ Cerebrovascular Accident { Contraindication to Antithrombotic: None; antithrombotic prescribed; Contraindication to Anticoagulation: None; anticoagulation prescribed; Contraindication to Statin: None; Statin prescribed; Contraindication to tPA: Treatment not indicated;}] Coding Level of Care Code Acute Chg FW DC note Diagnoses TIA (transient ischemic attack) G45.9 Polycythemia D75.1 HTN (hypertension) I10 Thromboembolic stroke I63.9
--- NOTE | 2021-08-06 14:03 | PC.NURSE ---
Right AC and left wrist IVs removed. Catheters intact.
[2021-08-06 14:05] VITALS: BP 117/70; PULSE 79; RESP 20; TEMP 36.4; O2SAT 96
--- NOTE | 2021-08-06 15:14 | PC.NURSE ---
Nurse discharged patient. Reviewed discharge information including new medications, medications changes, MRI results, and followup appointments. Dischargged via wheel chair to spouse.
[2021-08-09 13:53] LABS: Erythropoietin 9.1 mIU/mL (2.6-18.5)
== END 2021-08-06 15:15 | disposition home or self-care (01) ==
LOC: ER 17:40 → MEDSURG 18:41
PROVIDERS: Admitting Provider Student in an Organized Health Care Education/Training Program; Emergency Provider Family Medicine; PCP Family Medicine; Visit Provider Student in an Organized Health Care Education/Training Program
DX: G45.9 Transient cerebral ischemic attack, unspecified (principal); D75.1 Secondary polycythemia; I10 Essential (primary) hypertension; J44.9 Chronic obstructive pulmonary disease, unspecified; G47.33 Obstructive sleep apnea (adult) (pediatric); Z87.820 Personal history of traumatic brain injury; I63.9 Cerebral infarction, unspecified; I65.23 Occlusion and stenosis of bilateral carotid arteries
CPT/HCPCS: 36415; 36416; 70496; 70498; 70551; 72125; 72128; 80053; 80061; 80306; 81003; 82607; 82668; 82746; 82962; 83036; 83540; 83550; 83735; 84100; 84443; 85025; 85610; 85651; 85730; 86140; 92523; 92610; 93005; 96360; 96361; 96372; 97110; 97165; 99285; C8929; G0378; J1650; J7030; Q9956

== ENCOUNTER 2021-09-06 08:01 | Outpatient (CLI) | payer MEDICARE, SELFPAY ==
--- NOTE | 2021-09-06 08:11 | CT_ITS ---
WS: [id number] CTA HEAD AND NECK TECHNIQUE: Contrast enhanced CTA of the head and neck with coronal and sagittal reformatted images an d maximum intensity projection (MIP) images. NASCET criteria utilized. CLINICAL INFORMATION: ACUTE CVA COMPARISON: August 05, 2021 MRI August 06, 2021 DLP: 1788.[address] scans at [facility] use at least one of these dose optimization techniques: automated e xposure control; mA and/or kV adjustment per patient size (includes targeted exams where dose is matc hed to clinical indication); or iterative reconstruction. FINDINGS:No evidence of intracranial hemorrhage or mass effect on the noncontrast head imaging. Mild small vessel changes with moderate parenchymal volume loss. No extra axial fluid collections. No evid ence of mass or mass effect. Normal posterior fossa. Small punctate infarcts better visualized on bladimir or MRI. Fluid and mucosal thickening in the RIGHT frontal sinus. Secretions within the LEFT sphenoid sinus co nsistent with sinusitis. Mastoid air cells are well aerated. RIGHT: RIGHT common carotid artery is patent. Moderate calcified atheromatous plaque RIGHT carotid bu lb extending into the ICA. Less than 50% RIGHT ICA stenosis. RIGHT ICA is patent to the skull base. LEFT: LEFT common carotid artery is patent. Mild calcified atheromatous plaque LEFT carotid bulb exte nding into the ICA. No significant LEFT ICA stenosis. LEFT ICA is patent to the skull base. INTRACRANIAL CTA: Both vertebral arteries are patent. Mild segmental stenosis involving the basilar artery. Basilar art hodan is patent. Persistent LEFT BABY NURSE. Normal vascularity to the BABY NURSE territory bilaterally. Both ICAs are patent at the skull base. Mild cavernous carotid calcification. Normal vascularity to t he ARMANDO and MCA territories bilaterally. No evidence of flow-limiting stenosis or aneurysm. Lung apices are well aerated. Normal posterior nasopharynx. Normal parapharyngeal fat. No cervical ly mphadenopathy. Mild spondylitic changes cervical spine. Disc space narrowing worse at C5-C6 and C6-C7 . Normal visualized dural venous sinuses. CT/CT angio headneck* [id number] IMPRESSION: 1. No significant changes compared to August 05, 2021 2. Moderate atheromatous plaque both carotid bulbs extending into the ICA RIG HT greater than LEFT. Less than 50% ICA stenosis bilaterally unchanged. 3. Both vertebral arteries are patent. Mild segmental stenosis in the basilar artery which remains patent. 4. Mild cavernous carotid calcification. No flow-limiting intracranial stenosi s. 5. Persistent LEFT BABY NURSE.
[2021-09-06] MEDS: iodixanol 320 mg/mL 100mL Btl IV (09:10)
== END 2021-09-06 08:02 | disposition home or self-care (01) ==
LOC: RAD 08:03
PROVIDERS: PCP Family Medicine; Visit Provider Family Medicine
DX: I63.9 Cerebral infarction, unspecified (principal); I65.23 Occlusion and stenosis of bilateral carotid arteries
CPT/HCPCS: 70496; 70498

== ENCOUNTER 2021-09-20 11:56 | Outpatient (CLI) | payer MEDICARE, SELFPAY ==
[2021-09-20 13:45] LABS: Basophils # 0.1 10^3/uL (0.0-0.1); Basophils % 0.8 %; Eosinophils # 0.4 10^3/uL (0.0-0.8); Eosinophils % 4.8 %; Hemoglobin 16.9 g/dL (11.7-16.6); LAB Peripheral Smear Sent for Review; Lymphocytes # 1.8 10^3/uL (0.8-4.8); Lymphocytes % 23.7 %; Mean Corpuscular HGB Conc 34.5 g/dL (30.0-36.0); Mean Corpuscular Volume 92.8 fl (80-94); Mean Platelet Volume 9.8 fL (7.4-10.4); Monocytes # 0.5 10^3/uL (0.2-0.9); Monocytes % 6.4 %; Neutrophils # 4.83 10^3/uL (1.8-7.7); Nucleated Red Blood Cells % 0 %; Platelet Count 169 10^3/cmm (130-400); Red Blood Count 5.28 10^6/uL (4.1-5.3); Red Cell Distribution Width 12.3 % (12.1-15.1); White Blood Count 7.5 10^3/uL (4.0-10.0)
[2021-09-20 14:13] LABS: Alanine Aminotransferase 30 U/L (0-41); Albumin Level 4.2 g/dL (3.5-5.2); Alkaline Phosphatase 87 IU/L (40-130); Aspartate Amino Transferase 30 U/L (0-40); Blood Urea Nitrogen 19 mg/dL (8-23); Calcium 8.5 mg/dL (8.5-10.5); Carbon Dioxide 22 mmol/L (22-29); Chloride 103 mmol/L (98-107); Globulin 3.9 g/dL (1.3-4.6); Glomerular Filtration Rate 43.1 mL/min (90-130); Glucose 98 mg/dL (65-115); Osmolality Calculated 288 mOsm/kg (285-295); Sodium 138 mmol/L (136-145); Total Bilirubin 0.4 mg/dL (0.15-1.2); Total Protein 8.1 g/dL (6.6-8.7)
[2021-09-20 14:20] LABS: Anion Gap 16.8 (5-19); Lactate Dehydrogenase 199 U/L (135-225); Potassium 3.8 mmol/L (3.5-5.1)
--- NOTE | 2021-09-21 06:51 | ONC CON_ITS ---
Dr. Garcia New Patient Note Patient: Bridger Owens Unit #: [id number]: [id number] Dicatated By: Fish Garcia M.D.Date of Visit: Sep 20, 2021 Onc MED New Patient/Consult Referring Physician: Dr. MACARIO SHAHID M.D. Chief Complaint: Polycythemia. History of Present Illness: This is a 70-year-old man with elevated hemoglobin/hematocrit levels and presumed polycythemia. Approximately 3 years ago he had complained of being completely exhausted, and at that time he was found to have elevated hemoglobin/hematocrit levels. He underwent evaluation by a byproducts extractor in the [facility]. I do not have those records available. However, by the patient's description, it does sound as though he had tested negative for the JAK2 [id number] mutation, and he did not receive any specific treatment. On 08/05/2021 he was admitted to the hospital with suspected mini strokes. His CBC showed elevated hemoglobin at 17.8 g with hematocrit 51.1%. His white blood cell count was normal at 6800 and his platelet count was normal at 155,000. In the setting of acute strokelike symptoms and with a history of possible polycythemia, he was phlebotomized on an urgent basis. His repeat CBC the following day showed hemoglobin of 15.0 g with hematocrit 44.2%. His head MRI at that point showed multiple punctate tiny foci of acute ischemia involving the left frontal, parietal, occipital, and posterior temporal lobes, felt to be most likely embolic in etiology. There were no right-sided infarcts noted. CT angiogram of the head/neck showed moderate atheromatous plaque involving both carotid bulbs extending into the internal carotid arteries, right greater than left. There was less than 50% ICA stenosis bilaterally. Both vertebral arteries appeared patent. There was mild segmental stenosis in the basilar artery, but it appeared patent. 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 Echocardiogram showed normal left ventricular systolic function with ejection fraction 55 to 60%. There were no regional wall motion abnormalities noted. There was grade 1 diastolic dysfunction. There were no gross valvular abnormalities noted. He was discharged home on anticoagulation with apixaban 5 mg twice daily, and he also began treatment with clopidogrel 75 mg daily. He had previously been taking aspirin, and that was discontinued. He is seen now in regard to the elevated blood count. He has had no further strokelike symptoms since discharge from the hospital, though he does report having some short-term memory loss since that episode. He complains that he feels tired, but he is able to do light work. His ECOG score is 1. His appetite has decreased somewhat, but his weight is stable. He has not had fever. He reports having significant night sweating, but that has been going on for years. He has generalized itching, particularly after he showers. The itching had previously been managed with aspirin, and it has started bothering him again since he stopped taking it. He is having blurry vision in his right eye intermittently. He has not had sore throat or difficulty swallowing. He has nonproductive cough. Lately he has been having shortness of breath with activity and when he lies down. He has had chest pain, suspected to be angina. He reports having low-grade nausea. His acid reflux is adequately managed with medication. He has no complaints with bowel or bladder function. He has chronic pain in the back and lower extremities. Lately the pain has been tolerable with use of THC. He has been able to reduce his use of pain medication to only about once a week. He has been having headaches more frequently. He complains that he still does not have much strength in his right arm. He has numbness in his right leg. He has not been aware of any abnormal bruising, but he does have a tendency to bleed easily with minor cuts. Past Medical History: His medical history includes chronic obstructive pulmonary disease, degenerative disease of the spine with chronic back pain, GERD/Yancey's esophagus, hypertension, obstructive sleep apnea, and thromboembolic stroke. He has a history of traumatic brain injury at age 5 and a history of positive PPD. Past Surgical History: His surgical/procedural history includes appendectomy, back surgery x 4, excision of benign tumor from jaw, neuroma removal from the right foot, a procedure for sleep apnea which included T&A, reconstructive surgery on the right hand, removal of kidney stones, rhinoplasty, sinus surgery, and vasectomy. Medications: HYDROcodone-Acetaminophen 1 Tablet (of 7.5-325 mg) Oral t.i.d. PRN, Losartan Potassium-HCTZ 1 Tablet Oral daily, Pantoprazole Sodium 1 Tablet (of 40 mg) Tablet, enteric coated Oral b.i.d., Rosuvastatin Calcium 1 Tablet (of 40 mg) Oral at bedtime, THC Free Liquid Oral Take as Directed, Xarelto 1 Tablet (of 20 mg) Oral b.i.d. Allergies: No Known Allergies. Social History: Mr. Owens is . 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 He has never smoked cigarettes. He recently started smoking marijuana for medicinal purposes. He has just very occasional alcohol use. Family History: Father with lung disease at age 66. Mother with complications of diabetes, including renal failure. She also had been treated for lung cancer. A brother and a sister are in good health. Review Of Symptoms: Constitutional - He complains that he feels tired. He is able to do some work. His appetite recently has decreased, but his weight has been stable. He has not had fever. He reports having significant night sweating for years. He also has generalized itching, particularly after he takes a shower. He has been able to manage it with aspirin. His ECOG score is 1, Eyes - He intermittently has blurry vision on the right, ENMT - No hearing loss, but he has tinnitus. No sinus congestion/drainage. No mouth sores. No sore throat or difficulty swallowing, Hematologic/Lymphatic - No abnormal bruising, but he bleeds easily with cuts, Respiratory - He has shortness of breath with activity and when he lies down. He has nonproductive cough. No pleuritic pain or hemoptysis, Cardiovascular - He has had angina pain. No palpitations, Gastrointestinal - He has low-grade nausea. His acid reflux is adequately managed with medication. No diarrhea or constipation. No blood in the stool or black stools, Genitourinary (M) - No dysuria or hematuria. No urinary frequency. He has nocturia 1 or 2 times. No urgency or incontinence, Musculoskeletal - He has chronic pain in his back and lower extremities. It has been tolerable with the THC, Neurologic - He has headache on a daily basis. He has dizziness intermittently. He has numbness in the right leg. He has had short-term memory issues since his stroke, Psychiatric - He has had some depression. He has chronic insomnia. Vital Signs: Performed on Sep 20, 2021 12:37: 10, 6, 28.62, 1.99 sq.m, 68 in, 99 %, 75 /min, 18 /min, 127/76 mm(hg), 97.9 F (LOW), and 188.2 lbs (HIGH). Physical Examination: Constitutional - He looks pretty good generally, Eyes - Sclerae nonicteric. Conjunctivae clear, ENMT - No lesions noted in the oral cavity, Neck - No mass or thyromegaly, Hematologic/Lymphatic - No cervical, clavicular, or axillary adenopathy, Respiratory - Lungs sound clear with some decrease in air movement bilaterally, Cardiovascular - Heart rhythm is regular. There is no murmur, gallop, or rub noted. There is no carotid bruit noted, Abdomen - Soft and non-tender. Liver and spleen are not enlarged. There is no abdominal mass or ascites noted and there is no inguinal adenopathy, Back/Spine - No spine or CVA tenderness noted, Extremities - No edema. He has good dorsalis pedis pulses bilaterally, Integumentary - No rashes. No suspicious skin lesions noted, Neurologic - No focal neurologic deficits noted. Problem List: 1. Elevated hemoglobin/hematocrit levels most likely due to some form of secondary polycythemia. 2. He suffered multiple small strokes in July 2021, felt to be most likely embolic. 3. Hypertension. 4. GERD. 5. Degenerative disease of the spine with chronic back pain. 6. COPD. 7. Obstructive sleep apnea. 8. History of traumatic brain injury at age 5. Problems Addressed with this Encounter and Plan: Patient with elevated hemoglobin/hematocrit levels. This is most likely some form of secondary polycythemia. As he is not overtly hypoxic, I suspect this is due to a decreased plasma volume, i.e. stress erythrocytosis . This is now just a diagnosis of exclusion, as we do not have an accurate way of measuring blood volumes. However, he does have other symptoms which are suspicious for myeloproliferative disease, including night sweating and generalized itching. As such, polycythemia rubra vera still needs to be excluded. The laboratory findings were reviewed with the patient and we discussed the clinical implications. He will have additional laboratory studies today to include CBC, comprehensive metabolic profile, LDH level, and an erythropoietin level. In addition, I will request a JAK2 gene mutation analysis and I will review the blood smear. He will have further evaluation as indicated. Signed By: Fish Garcia M.D. <<Signature on File>>
[2021-09-21 14:48] LABS: Erythropoietin 11.2 mIU/mL (2.6-18.5)
[2021-10-04 16:23] LABS: CALR Exon 9 Mutation NOT DETECTED (NOT DETECTED); CSF3R Exon 14/17 Mutation NOT DETECTED (NOT DETECTED); JAK2 Exon 12 Mutation NOT DETECTED (NOT DETECTED); JAK2 V617 Block Specimen ID NG; JAK2 V617 Clinical Indication NG; JAK2 V617 Mutation NOT DETECTED (NOT DETECTED); JAK2 V617 Specimen Source NG; MPL Exon 12 Mutation NOT DETECTED (NOT DETECTED)
== END 2021-09-20 11:57 | disposition home or self-care (01) ==
LOC: ONCMED 11:58
PROVIDERS: PCP Family Medicine; Visit Provider Internal Medicine Medical Oncology
DX: D45 Polycythemia vera (principal); I10 Essential (primary) hypertension; K21.9 Gastro-esophageal reflux disease without esophagitis; J44.9 Chronic obstructive pulmonary disease, unspecified; M47.9 Spondylosis, unspecified; Z86.73 Personal history of transient ischemic attack (TIA), and cerebral infarction without residual deficits; Z79.899 Other long term (current) drug therapy
CPT/HCPCS: 36415; 80053; 81270; 82668; 83615; 85025; 99204

== ENCOUNTER → 2021-09-27 09:44 | Outpatient (BNVA) | payer MEDICARE, SELFPAY | PROVIDERS: PCP Family Medicine; Referring Provider Student in an Organized Health Care Education/Training Program; Visit Provider Specialist | DX: Z86.73 Personal history of transient ischemic attack (TIA), and cerebral infarction without residual deficits (principal) | CPT/HCPCS: 99204; 99205 ==

== ENCOUNTER → 2021-09-29 13:10 | Outpatient (BNVA) | payer MEDICARE, SELFPAY | PROVIDERS: PCP Family Medicine; Visit Provider Internal Medicine | DX: I63.9 Cerebral infarction, unspecified (principal); I10 Essential (primary) hypertension; J44.9 Chronic obstructive pulmonary disease, unspecified; R00.0 Tachycardia, unspecified; I49.1 Atrial premature depolarization; I49.3 Ventricular premature depolarization; R07.9 Chest pain, unspecified | CPT/HCPCS: 93005; 93229; 99204 ==

== ENCOUNTER → 2021-11-10 09:02 | Outpatient (BNVA) | payer MEDICARE, SELFPAY | PROVIDERS: PCP Family Medicine; Visit Provider Internal Medicine | DX: Z01.812 Encounter for preprocedural laboratory examination (principal); Z20.822 Contact with and (suspected) exposure to COVID-19 | CPT/HCPCS: 87635 ==

== ENCOUNTER 2021-11-12 10:19 | Day surgery (SDC) | payer MEDICARE, SELFPAY ==
[2021-11-10 12:44] VITALS: BMI 27.3
[2021-11-12 10:42] VITALS: BP 124/75; PULSE 59; RESP 18; TEMP 36; O2SAT 98
[2021-11-12] MEDS: sodium chloride 0.9% 1,000 ML 30 ML IV (10:51)
--- NOTE | 2021-11-12 11:01 | USCV_ITS ---
Bridger Owens Age: 70 Gender: M : 1950 Exam Date: 11/12/2021 12:14 Ordering Phys: Noe Gallegos M.D ([email or web address]) Technologist: MELINDA Exam Location: [facility] [place] Indication: Thromboembolic stroke BP: 126 / 90 HR: 82 Rhythm: Sinus Technical Quality: Adequate MEASUREMENTS (Male / Female) Normal Values FINDINGS Left Ventricle LV systolic function is normal Right Ventricle Grossly normal Right Atrium Left Atrium No left atrial appendage thrombus seen. No evidence of intracardiac shunt on bubble study. Mitral Valve Structurally normal. Mild mitral regurgitation Aortic Valve Normal aortic valve Tricuspid Valve Structurally normal. Pulmonic Valve Pericardium Normal Aorta Not well-visualized IVC CONCLUSIONS LV systolic function is normal. No left atrial appendage thrombus is seen. No evidence of intracardiac shunt on bubble study. Mild mitral regurgitation is noted. Noe Gallegos MD (Electronically Signed) Final Date: 13 November 2021 11:55 S
--- NOTE | 2021-11-12 12:05 | ANES.PREANE2 ---
Pre-Anesthetic Assessment Height/Weight: Height 1.73 m Weight 81.647 kg Temp Pulse Resp BP Pulse Ox 96.8 F L 59 L 18 124/75 98 11/12/21 10:42 11/12/21 10:42 11/12/21 10:42 11/12/21 10:42 11/12/21 10:42 Preop Diagnosis: CVA Operation Date: 11/12/21 12:00 Proposed Procedures p RUIZ 16050,i63.9(Not Applicable) - Noe Gallegos M.D Familial anesthetic complications: none Was Beta Philip taken within 24 hours: N/A Was Clonidine taken within 24 hours: N/A Last intake: Intake Last Liquid Date 11/11/21 Last Liquid Time 21:00 Last Solid Date 11/11/21 Last Solid Time 18:00 Last Intake: 21:00 Social No alcohol and No tobacco Exam alert, oriented x 3, clear to auscultation bilaterally and regular rate & rhythm Airway Submandibular: within normal limits Cervical ROM: within normal limits Mallampati: Class II Dentition: full Pulmonary Chronic Obstructive Pulmonary Disease, Exertional Dyspnea and Shortness of Breath CV/HEM Hypertension and Myocardial Infarction (20 yrs ago. No PTCA. No CP/sob since) None reported Hepatic None reported GI Gastroesophageal Reflux Disease (controlled) Metabolic None reported Musc/skel Lower Back Pain and Osteoarthritis/DJD Neuropsych Cerebrovascular Accident (r SIDE WEAKNESS), Seizure (r) and Transient Ischemic Attack Anesthetic Plan ASA status: 3 Anesthesia: MAC Medications/Allergies Home Medications Medication Instructions Recorded Confirmed Last Taken Type hydrocodone 7.5 mg-acetaminophen 1 tab PO BID PRN 15 Days #30 tab 04/26/21 11/12/21 11/10/21 Rx 325 mg tablet pantoprazole 40 mg tablet,delayed 40 mg PO DAILY 08/05/21 11/12/21 11/11/21 History release rosuvastatin 40 mg tablet 40 mg PO DAILY 08/05/21 11/12/21 11/11/21 History losartan 50 mg-hydrochlorothiazide 1 tab PO DAILY 09/27/21 11/12/21 11/11/21 History 12.5 mg tablet rivaroxaban 20 mg tablet (Xarelto) 20 mg PO BIDWMEAL #60 tab 10/01/21 11/12/21 11/11/21 Rx aspirin 325 mg tablet 325 mg PO DAILY 11/10/21 11/12/21 11/11/21 History diphenhydramine HCl 25 mg tablet 25 mg PO TID PRN 11/10/21 11/12/21 11/11/21 History melatonin 5 mg tablet 5 mg PO BEDTIME 11/10/21 11/12/21 11/11/21 History Allergies Allergy/AdvReac Type Severity Reaction Status Date / Time adhesive tape Allergy ALGY-Rash Verified 11/12/21 10:48 Current Medications Generic Name Dose Route Start Last Admin Trade Name Freq PRN Reason Stop Dose Admin Sodium Chloride 1,000 mls @ 30 mls/hr 11/12/21 10:30 11/12/21 10:51 Sodium Chloride 0.9% IV 11/13/21 10:29 30 mls/hr .Q24H NATALI Administration PFSH Anesthesia Medical History (Updated 09/29/21 @ 13:53 by Noe Gallegos M.D) Yancey esophagus COPD (chronic obstructive pulmonary disease) Facet arthropathy, 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 Other CAD (coronary artery disease) Clotting disorder Social History Smoking and tobacco status: never smoked Alcohol intake: current Alcohol intake frequency: holidays/special occasions only History of recent travel: No Data Anesthesia Cardiac Studies: Echocardiogram 08/06/21 Cardiac Event Monitor 09/29/21
--- NOTE | 2021-11-12 12:07 | P.HP_ITS ---
Same Day Surgery H&P Indication for Procedure/HPI DATE OF PROCEDURE: November 12, 2021 CHIEF COMPLAINT/INDICATIONFOR SURGICAL PROCEDURE: Stroke PREOP DIAGNOSIS: Stroke PLANNED PROCEDURE: Operation Date: 11/12/21 12:00 Proposed Procedures p RUIZ 10178,i63.9(Not Applicable) - Noe Gallegos M.D 70-year-old man with past medical history of hypertension who had recent stroke that was considered thromboembolic in origin as affected multiple vascular territories.? He was referred for RUIZ?to rule out cardiac source Medications/Allergies* Home Medications Medication Instructions Recorded Confirmed Type pantoprazole 40 mg tablet,delayed 40 mg PO DAILY 08/05/21 11/12/21 History release rosuvastatin 40 mg tablet 40 mg PO DAILY 08/05/21 11/12/21 History losartan 50 mg-hydrochlorothiazide 1 tab PO DAILY 09/27/21 11/12/21 History 12.5 mg tablet aspirin 325 mg tablet 325 mg PO DAILY 11/10/21 11/12/21 History diphenhydramine HCl 25 mg tablet 25 mg PO TID PRN 11/10/21 11/12/21 History melatonin 5 mg tablet 5 mg PO BEDTIME 11/10/21 11/12/21 History Allergies/Adverse Reactions Allergy/AdvReac Type Severity Reaction Status Date / Time adhesive tape Allergy ALGY-Rash Verified 11/12/21 10:48 Current Medications: Generic Name Dose Route Start Last Admin Trade Name Freq PRN Reason Stop Dose Admin Sodium Chloride 1,000 mls @ 30 mls/hr 11/12/21 10:30 11/12/21 10:51 Sodium Chloride 0.9% IV 11/13/21 10:29 30 mls/hr .Q24H NATALI Administration Pertinent History/Comorbid Conditions* Medical History (Updated 09/29/21 @ 13:53 by Noe Gallegos M.D) Yancey esophagus COPD (chronic obstructive pulmonary disease) Facet arthropathy, 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 HTN (hypertension) Lumbar disc disease with radiculopathy Lumbar post-laminectomy syndrome Neuroma of foot KISHORE (obstructive sleep apnea) Other reconstructive surgery as the cause of abnormal reaction of the patient, or of later complication, without mention of misadventure at the time of the procedure Polycythemia Traumatic brain injury Surgical History (Updated 08/05/21 @ 15:56 by Jeet Vasquez DO) H/O rhinoplasty History of appendectomy History of colonoscopy with polypectomy (~2016) Previous back surgery Family History (Updated 08/05/21 @ 17:37 by Stas Durham MD) Father Mother Diabetes Mother CAD (coronary artery disease) Clotting disorder Cancer Mother LUNG Social History Smoking and tobacco status: never smoked Alcohol intake: current Alcohol intake frequency: holidays/special occasions only History of recent travel: No Pertinent Exam Findings alert, oriented x 3, clear to auscultation bilaterally and regular rate & rhythm Recommendations Surgery/Procedure today (Transesophageal echocardiogram) Coding Level of Care Code Acute Gis Application Developer for Jm Harrington
[2021-11-12 12:39] VITALS: BP 103/63; PULSE 74; RESP 18; TEMP 36.4; O2SAT 96
[2021-11-12 13:16] VITALS: BP 93/50; PULSE 60; RESP 16; O2SAT 98
--- NOTE | 2021-11-12 14:43 | ANE.PACU2 ---
Inpatient post-anesthesia follow up: Airway intact: Yes Vital signs: Temperature 97.5 F Pulse Rate 60 Respiratory Rate 16 Blood Pressure 93/50 Pulse Oximetry 98 Oxygen Delivery Me thod Room Air Oxygen Flow Rate 4 Fraction of Inspir ed Oxygen Hydration adequate: Yes Nausea and vomiting: No Pain level: 1 Mental status: Baseline
== END 2021-11-12 13:26 | disposition home or self-care (01) ==
PROVIDERS: PCP Family Medicine; Visit Provider Internal Medicine
PROC: (CPT 93312; principal; 2021-11-12 12:00)
DX: I63.9 Cerebral infarction, unspecified (principal); I10 Essential (primary) hypertension; Z79.82 Long term (current) use of aspirin; J44.9 Chronic obstructive pulmonary disease, unspecified; G47.33 Obstructive sleep apnea (adult) (pediatric); Z87.820 Personal history of traumatic brain injury; I34.0 Nonrheumatic mitral (valve) insufficiency; I25.2 Old myocardial infarction
CPT/HCPCS: 93312; 93320; 93325; J7030

== ENCOUNTER → 2021-12-07 14:11 | Outpatient (BNVA) | payer MEDICARE, SELFPAY | PROVIDERS: PCP Family Medicine; Referring Provider Family Medicine; Visit Provider Specialist | DX: I10 Essential (primary) hypertension (principal); Z86.73 Personal history of transient ischemic attack (TIA), and cerebral infarction without residual deficits | CPT/HCPCS: 99214 ==

== ENCOUNTER → 2021-12-29 13:40 | Outpatient (BNVA) | payer MEDICARE, SELFPAY | PROVIDERS: PCP Family Medicine; Visit Provider Internal Medicine | DX: I10 Essential (primary) hypertension (principal); Z86.73 Personal history of transient ischemic attack (TIA), and cerebral infarction without residual deficits | CPT/HCPCS: 99213; 99214 ==

== ENCOUNTER 2022-01-11 11:35 | Oncology outpatient (recurring) (ONCR) | payer MEDICARE, SELFPAY ==
[2022-01-11 12:05] LABS: Basophils # 0.1 10^3/uL (0.0-0.1); Basophils % 0.8 %; Eosinophils # 0.4 10^3/uL (0.0-0.8); Eosinophils % 6.8 %; Hematocrit 51.6 % (42.0-52.0); Hemoglobin 17.1 g/dL (11.7-16.6); Lymphocytes % 32.2 %; Mean Corpuscular HGB Conc 33.1 g/dL (30.0-36.0); Mean Corpuscular Hemoglobin 31.3 pg (28.0-34.0); Mean Corpuscular Volume 94.5 fl (80-94); Mean Platelet Volume 10.2 fL (7.4-10.4); Monocytes # 0.3 10^3/uL (0.2-0.9); Neutrophils # 3.42 10^3/uL (1.8-7.7); Nucleated Red Blood Cells % 0 %; Platelet Count 131 10^3/cmm (130-400); Red Blood Count 5.46 10^6/uL (4.1-5.3); Red Cell Distribution Width 13.1 % (12.1-15.1); White Blood Count 6.2 10^3/uL (4.0-10.0)
[2022-01-11 12:30] LABS: Alanine Aminotransferase 30 U/L (0-41); Albumin Level 3.9 g/dL (3.5-5.2); Alkaline Phosphatase 85 U/L (40-130); Anion Gap 14.1 (5-19); Aspartate Amino Transferase 26 U/L (0-40); Blood Urea Nitrogen 16 mg/dL (8-23); Calcium 8.5 mg/dL (8.5-10.5); Carbon Dioxide 23 mmol/L (22-29); Chloride 104 mmol/L (98-107); Globulin 3.1 g/dL (1.3-4.6); Glomerular Filtration Rate 46.3 mL/min (90-130); Glucose 142 mg/dL (65-115); Lactate Dehydrogenase 144 U/L (135-225); Osmolality Calculated 288 mOsm/kg (285-295); Potassium 4.1 mmol/L (3.5-5.1); Sodium 137 mmol/L (136-145); Total Bilirubin 0.4 mg/dL (0.15-1.2)
== END 2022-01-26 23:59 | disposition home or self-care (01) ==
LOC: ONCMED 11:36
PROVIDERS: PCP Family Medicine; Visit Provider Internal Medicine Medical Oncology
DX: D75.1 Secondary polycythemia (principal); R79.89 Other specified abnormal findings of blood chemistry
CPT/HCPCS: 80053; 83615; 85025; 99214

== ENCOUNTER → 2022-06-08 13:09 | Outpatient (BNVA) | payer MEDICARE, SELFPAY | PROVIDERS: PCP Family Medicine; Visit Provider Specialist | DX: G43.711 Chronic migraine without aura, intractable, with status migrainosus (principal); Z86.73 Personal history of transient ischemic attack (TIA), and cerebral infarction without residual deficits | CPT/HCPCS: 99214 ==

== ENCOUNTER → 2022-07-20 15:15 | Outpatient (BNVA) | payer MEDICARE, SELFPAY | PROVIDERS: PCP Family Medicine; Visit Provider Specialist | DX: R55 Syncope and collapse (principal); G43.711 Chronic migraine without aura, intractable, with status migrainosus; Z86.73 Personal history of transient ischemic attack (TIA), and cerebral infarction without residual deficits | CPT/HCPCS: 99214 ==

== ENCOUNTER → 2022-08-18 08:00 | Outpatient (BNVA) | payer MEDICARE, SELFPAY | PROVIDERS: PCP Family Medicine; Visit Provider Specialist | DX: G43.711 Chronic migraine without aura, intractable, with status migrainosus (principal) | CPT/HCPCS: 99213 ==

== ENCOUNTER → 2023-01-17 08:13 | Outpatient (BNVA) | payer MEDICARE, SELFPAY | PROVIDERS: PCP Family Medicine; Visit Provider Specialist | DX: G43.711 Chronic migraine without aura, intractable, with status migrainosus (principal); R55 Syncope and collapse; D75.1 Secondary polycythemia; R41.89 Other symptoms and signs involving cognitive functions and awareness; I69.398 Other sequelae of cerebral infarction | CPT/HCPCS: 0346U; 82542; 82607; 96116; 99214 ==

== ENCOUNTER → 2023-03-21 12:55 | Outpatient (BNVA) | payer MEDICARE, SELFPAY | PROVIDERS: PCP Family Medicine; Visit Provider Specialist | DX: G43.711 Chronic migraine without aura, intractable, with status migrainosus (principal); R55 Syncope and collapse; G31.84 Mild cognitive impairment of uncertain or unknown etiology; I20.89 Other forms of angina pectoris; Z86.73 Personal history of transient ischemic attack (TIA), and cerebral infarction without residual deficits | CPT/HCPCS: 99215 ==

== ENCOUNTER 2023-04-19 10:44 | Outpatient (CLI) | payer MEDICARE, SELFPAY ==
--- NOTE | 2023-04-19 11:00 | MR_ITS ---
WS: [id number] MRI HEAD WITHOUT CONTRAST TECHNIQUE: Sagittal T1, T2 axial, T2 axial FLAIR, axial and coronal T1 images, axial susceptibility w eighted imaging, axial diffusion weighted images, and coronal T2 images were obtained. CLINICAL INFORMATION: I69.30 - Unspecified sequelae of cerebral infarction COMPARISON: MRI 08/06/2021 FINDINGS: No evidence of restricted diffusion to suggest acute ischemia. Ventricular system and basal cisterns are patent. Mild small vessel changes. Moderate parenchymal volume loss. Normal posterior fossa. Norm al vascular flow voids at the skull base. No extra-axial fluid collections. No evidence of mass or ma ss effect. Mucosal thickening in the paranasal sinuses. Mastoid air cells are well aerated. Normal po sterior nasopharynx. No hemosiderin on the susceptibility weighted images. Normal optic chiasm and pituitary infundibulum. Moderate symmetric atrophy temporal lobes and hippocampal formations. IMPRESSION: 1. No evidence of restricted diffusion to suggest acute ischemia. 2. Mild small vessel changes with moderate parenchymal volume loss unchanged. 3. Mild mucosal thickening in the paranasal sinuses with sphenoid sinusitis. 4. Moderate symmetric atrophy temporal lobes and hippocampal formations.
== END 2023-04-19 10:45 | disposition home or self-care (01) ==
LOC: RAD 10:45
PROVIDERS: PCP Family Medicine; Visit Provider Specialist
DX: I69.30 Unspecified sequelae of cerebral infarction (principal); G31.84 Mild cognitive impairment of uncertain or unknown etiology; G43.711 Chronic migraine without aura, intractable, with status migrainosus; J32.3 Chronic sphenoidal sinusitis
CPT/HCPCS: 70551

== ENCOUNTER 2023-05-23 10:14 | Outpatient (CLI) | payer MEDICARE, SELFPAY ==
[2023-05-23 10:39] VITALS: BMI 27.3
--- NOTE | 2023-05-23 10:43 | ECG_ITS ---
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 Interpretive Statements NAME OF STUDY: LEXISCAN SESTAMIBI STRESS TEST INDICATION: Dyspnea on Exertion PROCEDURE: At the baseline, the EKG revealed normal sinus rhythm with no significant ST-T changes. The baseline heart was 78 bpm with a blood pressue of 112/86 mm of Hg Lexiscan was infused over a period of 20 seconds. A total of 0.4 milligrams of Lexiscan was infused. The stress phase was continued for a total of 5 minutes. Heart rate at the end of the stress phase was 86 bpm with a blood pressure 116/85 mm of Hg. The EKG at the peak infusion revealed no significant changes. Sestamibi was injected 20 seconds after the Lexiscan infusion. Heart rate at the end of the recovery phase was 81 bpm with a blood pressure of 112/80 mm of Hg. patient had shortness of breath with the Lexiscan infusion which spontaneously resolved CONCLUSION: 1. No significant EKG changes with the LexiScan infusion 2. No LexiScan induced chest pain or cardiac arrhythmia 3. Normal blood pressure and heart rate response 4. Sestamibi/sestamibi perfusion scan pending; see separate report. Electronically Signed On 05-29-2023 17:54:05 EMERGENCY VEHICLE TECHNICIAN by Nahun Miranda M.D. [email or web address]
--- NOTE | 2023-05-23 10:43 | NMCV_ITS ---
NM tatianna perf SPECT r/s* [id number] Bridger Owens Age: 72 Gender: M : 1950 Exam Date: 05/23/2023 11:15 Ordering Phys: April Mccarthy MD Technologist: MIGUELINA Bodren Exam Location: [facility] Indications: ANGINA PECTORIS STRESS TEST Please see separate stress test report in [employer] for full findings IMAGE PROTOCOL Rest/Stress 1 Lexiscan Day Radiopharmaceutical Dose (mCi) Administration Site Administered by Rest: Tc-99m 10.5 IV MIGUELINA Hunter Sestamibi Stress:Tc-99m 32.7 IV MIGUELINA Hunter Sestamibi Rest: 23-May-2023 60 Discovery 630 Stress: 23-May-2023 30 Discovery 630 0.4mg Lexiscan. Images obtained in supine and prone position. SPECT RESULTS Technical Quality: Excellent Raw Data Analysis: Normal Image Corrections: No attenuation or motion correction applied Summed Stress Score: 0 Summed Rest Score: 0 Summed Difference Score: 0 PERFUSION FINDINGS SPECT images demonstrate homogeneous tracer distribution throughout the myocardium. FUNCTIONAL RESULTS (calculated via Gated SPECT) Stress Image LV EF (%): 69 Stress EDV (mL):61 TID: 1.16 Stress ESV (mL):19 FUNCTIONAL FINDINGS: There is normal left ventricular systolic function. IMPRESSIONS 1. Normal myocardial perfusion imaging with no evidence of ischemia 2. LV systolic function is normal Noe Gallegos MD (Electronically Signed) Final Date: 23 May 2023 16:06 S
[2023-05-23] MEDS: regadenoson 0.4 Mg/5 ml Syringe IVP (11:40)
[2023-05-23 12:43] VITALS: BP 112/84; PULSE 72
== END 2023-05-23 10:15 | disposition home or self-care (01) ==
PROVIDERS: PCP Family Medicine; Visit Provider Specialist
DX: R06.00 Dyspnea, unspecified (principal); I20.9 Angina pectoris, unspecified
CPT/HCPCS: 36415; 78452; 93017; 96374; A9500; J2785

== ENCOUNTER → 2023-05-25 09:57 | Outpatient (BNVA) | payer MEDICARE, SELFPAY | PROVIDERS: PCP Family Medicine; Visit Provider Specialist | DX: I63.9 Cerebral infarction, unspecified (principal); R56.9 Unspecified convulsions; I69.30 Unspecified sequelae of cerebral infarction; R55 Syncope and collapse; G43.711 Chronic migraine without aura, intractable, with status migrainosus | CPT/HCPCS: 95816 ==

== ENCOUNTER → 2023-07-05 10:15 | Outpatient (BNVA) | payer MEDICARE, SELFPAY | PROVIDERS: PCP Family Medicine; Visit Provider Specialist | DX: G43.711 Chronic migraine without aura, intractable, with status migrainosus (principal); G31.84 Mild cognitive impairment of uncertain or unknown etiology; I10 Essential (primary) hypertension | CPT/HCPCS: 99213 ==

== ENCOUNTER → 2024-07-02 14:56 | Outpatient (BNVA) | payer MEDICARE, SELFPAY | PROVIDERS: PCP Family Medicine; Visit Provider Specialist | DX: R29.90 Unspecified symptoms and signs involving the nervous system (principal); G43.711 Chronic migraine without aura, intractable, with status migrainosus; G31.84 Mild cognitive impairment of uncertain or unknown etiology | CPT/HCPCS: 99214 ==

== ENCOUNTER 2024-07-23 10:31 | Outpatient (CLI) | payer MEDICARE, SELFPAY ==
--- NOTE | 2024-07-23 10:36 | CT_ITS ---
WS: [id number] CT ABDOMEN PELVIS TECHNIQUE: Noncontrast CT of the abdomen and contrast-enhanced CT of the abdomen and pelvis with coronal and sagittal reformatted images. CLINICAL INFORMATION: MASS OF PANCREAS COMPARISON: None. DLP: 1617.[address] scans at [facility] use at least one of these dose optimization techniques: automated exposure control; mA and/or kV adjustment per patient size (includes targeted exams where dose is matched to clinical indication); or iterative reconstruction. FINDINGS: Several polypoid filling defects in the gastric fundus and pylorus. These are indeterminate and recommend follow-up with endoscopy. Pyloric ovoid filling defect measures 4.1 cm. Some of this may represent inspissated food products but indeterminant Normal caliber abdominal aorta. Celiac and SMA are patent. Small splenule. Fatty atrophy of the pancreas. Normal pancreatic tissue in the head of the pancreas. No visualized pancreatic mass or lesion. Mild diffuse fatty infiltration of the liver. Normal portal vein and splenic vein. Gallbladder is contracted. Adrenal glands are normal. Normal renal parenchymal enhancement. Parenchymal scarring both kidneys with small bilateral renal cysts. Retroaortic LEFT renal vein. Calcified enlarged prostate measuring 4.2 cm. Extensive sigmoid diverticulosis. No evidence of acute diverticulitis.Small fat-containing umbilical hernia. Postoperative changes lower lumbar spine. Lung bases are well aerated. CT/CT abdomen pelvis wo/w [id number] IMPRESSION: 1. No evidence of pancreatic head mass or lesion. 2. A few lobulated polypoid filling defects in the stomach indeterminant. Some of these may represent inspissated food products. This can be further evaluate d with endoscopy. 3. Diffuse fatty infiltration of the liver. 4. Extensive sigmoid diverticulosis. 5. Mild prostate enlargement. Recommend correlation PSA.
[2024-07-23] MEDS: iohexol 350 mg/mL 500 mL Btl (per mL) PO (11:40)
[2024-07-23] MEDS: iohexol 350 mg/mL 500 mL Btl (per mL) IV (11:40)
== END 2024-07-23 10:32 | disposition home or self-care (01) ==
LOC: RAD 10:34
PROVIDERS: PCP Family Medicine; Visit Provider Family Medicine
DX: K86.89 Other specified diseases of pancreas (principal); R93.3 Abnormal findings on diagnostic imaging of other parts of digestive tract; K76.0 Fatty (change of) liver, not elsewhere classified; K57.30 Diverticulosis of large intestine without perforation or abscess without bleeding; N40.0 Benign prostatic hyperplasia without lower urinary tract symptoms; D73.89 Other diseases of spleen; N28.1 Cyst of kidney, acquired; R93.421 Abnormal radiologic findings on diagnostic imaging of right kidney; R93.422 Abnormal radiologic findings on diagnostic imaging of left kidney; K42.9 Umbilical hernia without obstruction or gangrene; R93.7 Abnormal findings on diagnostic imaging of other parts of musculoskeletal system
CPT/HCPCS: 74178

== ENCOUNTER 2024-08-19 07:49 | Outpatient (CLI) | payer MEDICARE, SELFPAY ==
--- NOTE | 2024-08-19 08:02 | NM_ITS ---
WS: [id number] NUCLEAR MEDICINE GASTRIC STUDY CLINICAL INFORMATION: EARLY SATIETY TECHNIQUE: Following oral ingestion of cooked egg mixed with 1.04 mCi technetium 99m sulfur colloid, anterior images of the stomach were obtained over the course of 90 minutes. Activity curve was performed over the course of 90 minutes with linear regression analysis. COMPARISON: None. FINDINGS: T1 half emptying 110 minutes 60-minute emptying 30% 50% emptying at 112 minutes NM/NM gastric emptying st [id number] IMPRESSION: T1 half emptying 110 minutes at the upper end of the range borderline for delay ed gastric emptying *Normal median T1 half 90 minutes for solid egg meal (45-110 minutes). Delayed gastric retention is defined as 90% retained at 1 hour, 60% at 2 hour s, 30% at 3 hours, and 10% at 4 hours (normal percent gastric retention is 37-9 0% at 1 hour, 30-60% at 2 hours, and 0-10% at 4 hours).
== END 2024-08-19 07:50 | disposition home or self-care (01) ==
LOC: RAD 07:51
PROVIDERS: PCP Family Medicine; Visit Provider Family Medicine
DX: R68.81 Early satiety (principal); R93.89 Abnormal findings on diagnostic imaging of other specified body structures
CPT/HCPCS: 78264; A9541

== ENCOUNTER → 2024-10-02 13:59 | Outpatient (BNVA) | payer MEDICARE, SELFPAY | PROVIDERS: PCP Family Medicine; Visit Provider Podiatrist Foot & Ankle Surgery | DX: G57.61 Lesion of plantar nerve, right lower limb (principal); M79.671 Pain in right foot | CPT/HCPCS: 64455; 73630; 99204; J1100; J3301; J3490 ==

== ENCOUNTER 2024-10-25 09:02 | Outpatient (CLI) | payer MEDICARE, SELFPAY ==
--- NOTE | 2024-10-25 09:10 | CTR_ITS ---
PROCEDURE INFORMATION: Exam: CT Chest With Contrast; Diagnostic Exam date and time: 10/25/2024 10:40 AM Age: 73 years old Clinical indication: Other: Unintentional weight loss; Prior surgery; Surgery date: 6+ months; Surgery type: Lumbar, appy, renal calc removal TECHNIQUE: Imaging protocol: Diagnostic computed tomography of the chest with contrast. Radiation optimization: All CT scans at this facility use at least one of these dose optimization techniques: automated exposure control; mA and/or kV adjustment per patient size (includes targeted exams where dose is matched to clinical indication); or iterative reconstruction. Contrast material: OMNI 350; Contrast volume: 100 ml; Contrast route: INTRAVENOUS (IV); COMPARISON: CR XR chest 2V* [id number] 05/17/2019 11:24 AM RADIATION DOSE METRICS: Total DLP (mGy-cm): 885.78 FINDINGS: Lungs: Calcified left upper lobe granuloma. No focal consolidation or generalized interstitial process. No suspicious pulmonary nodules. Pleural spaces: Unremarkable. No pneumothorax. No pleural effusion. Heart: Unremarkable. No cardiomegaly. No pericardial effusion. Coronary arteries: Coronary stenting along the LAD. Lymph nodes: Unremarkable. No enlarged lymph nodes. Vasculature: Unremarkable. No aortic aneurysm. Bones/joints: Mild degenerative changes of the thoracic spine. Multilevel anterior osteophytes. Soft tissues: Unremarkable. PROCEDURE INFORMATION: Exam: CT Abdomen And Pelvis With Contrast Exam date and time: 10/25/2024 10:40 AM Age: 73 years old Clinical indication: Other: Unintentional weight loss; Prior surgery; Surgery date: 6+ months; Surgery type: Lumbar, appy, renal calc removal TECHNIQUE: Imaging protocol: Computed tomography of the abdomen and pelvis with contrast. Radiation optimization: All CT scans at this facility use at least one of these dose optimization techniques: automated exposure control; mA and/or kV adjustment per patient size (includes targeted exams where dose is matched to clinical indication); or iterative reconstruction. Contrast material: OMNI 350; Contrast volume: 100 ml; Contrast route: INTRAVENOUS (IV); COMPARISON: CT abdomen pelvis wo/w [id number] 07/23/2024 11:23 AM RADIATION DOSE METRICS: Total DLP (mGy-cm): 885.78 FINDINGS: Liver: Normal. No mass. Gallbladder and biliary ducts: Normal. No calcified stones. No ductal dilation. Pancreas: Mild fatty atrophy of the pancreas. No pancreatic ductal dilatation. Spleen: Normal. No splenomegaly. Adrenal glands: Normal. No mass. Kidneys and ureters: Multifocal cortical scarring within bilateral kidneys. Subcentimeter hypodensities are too small to characterize but likely represent cysts. Stomach and bowel: Sigmoid diverticulosis without evidence of acute diverticulitis. No evidence of bowel obstruction. Previously seen polypoid filling defects along the gastric antrum/pylorus are less conspicuous. Some filling defects remain. Appendix: No evidence of appendicitis. Intraperitoneal space: Unremarkable. No free air. No significant fluid collection. Vasculature: Retroaortic left renal vein again seen. Mild atherosclerotic aortoiliac calcifications. No abdominal aortic aneurysm. Lymph nodes: Unremarkable. No enlarged lymph nodes. Urinary bladder: Unremarkable as visualized. Reproductive: Stable appearance of the prostate. Bones/joints: Posterior instrumented fusion from L5-S1. Hardware appears intact without complication. Soft tissues: Unremarkable. CT/CT chest abdpel w/*[id number] IMPRESSION: No acute findings in the chest. IMPRESSION: 1. No acute findings in the abdomen/pelvis. 2. Previously seen polypoid filling defects in the distal stomach are less conspicuous, though a few small filling defects remain. Findings are nonspecific and could be related to ingested material/food, though true polyps are difficult to exclude on this examination. Endoscopy could be considered for further evaluation if not performed previously. 3. Sigmoid diverticulosis without diverticulitis. COMMENTS: Consistent with the [employer]'s Incidental Findings Committee white paper (J Am Roger Radiol 2018): Any incidental renal lesion less than 1 cm or classified as too small to characterize, or any incidental cystic renal lesion characterized as simple-appearing, is likely benign. No follow-up imaging is recommended for these lesions per consensus recommendations based on imaging criteria.
[2024-10-25] MEDS: iohexol 350 mg/mL 500 mL Btl (per mL) IV (10:25)
[2024-10-25] MEDS: iohexol 350 mg/mL 500 mL Btl (per mL) PO (10:25)
[2024-10-25 10:36] LABS: Blood Urea Nitrogen 14 mg/dL (8-23)
== END 2024-10-25 09:03 | disposition home or self-care (01) ==
PROVIDERS: PCP Family Medicine; Visit Provider Nurse Practitioner Family
DX: R63.4 Abnormal weight loss (principal); R93.3 Abnormal findings on diagnostic imaging of other parts of digestive tract; K57.30 Diverticulosis of large intestine without perforation or abscess without bleeding; J84.10 Pulmonary fibrosis, unspecified; Z95.5 Presence of coronary angioplasty implant and graft; M47.894 Other spondylosis, thoracic region; M25.78 Osteophyte, vertebrae; K86.89 Other specified diseases of pancreas; N28.89 Other specified disorders of kidney and ureter; R93.89 Abnormal findings on diagnostic imaging of other specified body structures; I70.0 Atherosclerosis of aorta; Z98.890 Other specified postprocedural states
CPT/HCPCS: 71260; 74177; 82565; 84520

== ENCOUNTER → 2024-11-18 13:00 | Outpatient (BNVA) | payer MEDICARE, SELFPAY | PROVIDERS: PCP Family Medicine; Visit Provider Podiatrist Foot & Ankle Surgery | DX: G57.61 Lesion of plantar nerve, right lower limb (principal); M79.671 Pain in right foot | CPT/HCPCS: 64455; J1100; J3301; J3490 ==

== ENCOUNTER → 2024-12-16 13:00 | Outpatient (BNVA) | payer MEDICARE, SELFPAY | PROVIDERS: PCP Family Medicine; Visit Provider Podiatrist Foot & Ankle Surgery | DX: G57.61 Lesion of plantar nerve, right lower limb (principal) | CPT/HCPCS: 99213 ==

== ENCOUNTER → 2025-01-20 11:26 | Outpatient (BNVA) | payer MEDICARE, SELFPAY | PROVIDERS: PCP Family Medicine; Visit Provider Specialist | DX: R29.90 Unspecified symptoms and signs involving the nervous system (principal); G43.711 Chronic migraine without aura, intractable, with status migrainosus; G31.84 Mild cognitive impairment of uncertain or unknown etiology; Z86.73 Personal history of transient ischemic attack (TIA), and cerebral infarction without residual deficits | CPT/HCPCS: 99213 ==